=== PATIENT | male | born 1945 | race Caucasian/White ===

== ENCOUNTER 2020-06-08 10:09 | Inpatient (IN) | payer MEDICARE ==
[2020-06-08 11:10] LABS: Basophils # (A) 0.1 k/uL (0-0.2); Basophils % (A) 0 %; Eosinophils # (A) 0.1 k/uL (0-0.7); Eosinophils % (A) 1 %; HCT 47.6 % (39.0-53.0); HGB 16.3 gm/dL (13.0-17.5); Lymphocytes % (A) 6 %; MCHC 34.3 g/dL (31.0-37.0); MCV 90.1 fL (80.0-100.0); Mean Platelet Volume 8.8; Monocytes # (A) 1.1 k/uL (0-1.0); Monocytes % (A) 6 %; Neutrophils # (A) 15.9 k/uL (1.3-7.7); Neutrophils % (A) 87 %; Platelet Count 337 k/uL (150-450); RBC 5.28 m/uL (4.30-5.90); RDW 13.6 % (11.5-15.5); WBC 18.3 k/uL (3.8-10.6)
[2020-06-08 11:21] LABS: Albumin 4.4 g/dL (3.5-5.0); Calcium 10.3 mg/dL (8.4-10.2); Total Bilirubin 1.4 mg/dL (0.2-1.3); Total Protein 7.2 g/dL (6.3-8.2)
[2020-06-08 11:23] LABS: Magnesium 2.2 mg/dL (1.6-2.3); Partial Thromboplastin Time 23.6 sec (22.0-30.0); Prothrombin Time 10.4 sec (9.0-12.0)
[2020-06-08 11:25] LABS: Appearance,Urine Clear (Clear); Bilirubin,Urine Negative (Negative); Blood,Urine Negative (Negative); Color,Urine Yellow; Glucose,Urine (UA) Negative (Negative); Hyaline Casts,Urine 52 /lpf (0-2); Ketones,Urine Negative (Negative); Leukocyte Esterase,Urine Negative (Negative); Mucus,Urine Moderate /hpf; Nitrite,Urine Negative (Negative); PH, Urine 5.5 (5.0-8.0); Protein,Urine 1+ (Negative); RBC,Urine 1 /hpf (0-5); Specific Gravity,Urine 1.032 (1.001-1.035); Squamous Epithelial Cell,Urine <1 /hpf (0-4); Urobilinogen,Urine <2.0 mg/dL (<2.0); WBC,Urine 2 /hpf (0-5)
--- NOTE | 2020-06-08 11:29 | XR ---
EXAMINATION TYPE: XR chest 2V DATE OF EXAM: 06/08/2020 COMPARISON: NONE HISTORY: Chest pain and discomfort. TECHNIQUE: Frontal and lateral views of the chest are obtained. FINDINGS: Overlying EKG leads. There is reticular interstitial changes bilaterally slightly more prom inent in the left basilar region. No significant pleural effusion or pneumothorax noted. The cardiac silhouette size is upper limits of normal. The osseous structures are intact. IMPRESSION: Reticular interstitial changes bilaterally favor fibrosis. Correlation with old outside x-ray would be beneficial. Areas of acute edema and/or infiltrate difficult to exclude without prior comparison.
[2020-06-08] MEDS ORDERED: ASPIRIN 81 MG PO STA (11:57)
--- NOTE | 2020-06-08 11:58 | ED ---
Chest Pain HPI - General Chief Complaint: Chest Pain Stated Complaint: Chest pain, abd pain, JULIAN Time Seen by Provider: 06/08/20 10:22 Source: patient, family Mode of arrival: ambulatory Limitations: no limitations - History of Present Illness Initial Comments: 74-year-old male presents today for chief complaint of chest pain. Pt states for the past few weeks with ambulation and agter eating he has had chest discomfort in the upper abdomen that radiates up into the chest and sometimes into the arms. Patient states that last night he thought "i was going to " from the chest pressure and pain in his chest. Patient states he had associated SOB. Patient states that the symptoms improved at rest. But when he walks or eating he has chest pressure/pain. Patient denies vomiting, lower abdominal pain, back pain. Patient denies additional complaints. - Related Data Home Medications Medication Instructions Recorded Confirmed Omeprazole Magnesium [PriLOSEC OTC] 20 mg PO DAILY PRN 06/08/20 06/08/20 Allergies Allergy/AdvReac Type Severity Reaction Status Date / Time No Known Allergies Allergy Verified 06/08/20 11:30 Review of Systems ROS Statement: Those systems with pertinent positive or pertinent negative responses have been documented in the HPI. ROS Other: All systems not noted in ROS Statement are negative. Past Medical History Past Medical History: Hypertension History of Any Multi-Drug Resistant Organisms: None Reported Past Surgical History: Orthopedic Surgery Additional Past Surgical History / Comment(s): left shoulder Past Psychological History: No Psychological Hx Reported Smoking Status: Never smoker Past Alcohol Use History: None Reported Past Drug Use History: None Reported General Exam Limitations: no limitations Course Vital Signs 06/08/20 10:11 Temperature 97.8 F Pulse Rate 136 H Respiratory 18 Rate Blood Pressure 118/84 O2 Sat by Pulse 97 Oximetry Disposition Referrals: None,Stated [Primary Care Provider] - 1-2 days
[2020-06-08] MEDS ORDERED: HEPARIN SODIUM,PORCINE 5,000 UNIT/ML 1 ML VIAL IV PRN (11:59)
[2020-06-08] MEDS ORDERED: HEPARIN SODIUM,PORCINE 5,000 UNIT/ML 1 ML VIAL IV ONE (11:59)
[2020-06-08 12:03] LABS: D-Dimer 2.16 mg/L FEU (<0.60)
[2020-06-08] MEDS: HEPARIN SOD,PORK IN 0.45% NACL 25,000 UNIT in 0.45% NACL 1 250ML.BAG IV SCH (12:17)
[2020-06-08] MEDS ORDERED: FUROSEMIDE 10 MG/ML 4 ML VIAL IV STA (12:17)
--- NOTE | 2020-06-08 12:19 | ED ---
Chest Pain HPI - General Source: patient, family Mode of arrival: ambulatory Limitations: no limitations <Edith Bolanos - Last Filed: 06/08/20 12:58> <Penny Bryan - Last Filed: 06/11/20 00:52> - General Chief Complaint: Chest Pain Stated Complaint: Chest pain, abd pain, JULIAN Time Seen by Provider: 06/08/20 10:22 - History of Present Illness Initial Comments: 74yo male with previous history of hypertension who currently does not take any of his medications presents emergency department today for months of chest pain that increased last night. Patient states he has had upper abdominal pain that radiates into his chest and at times into his arm for the past 2 months he states is her pressure at times sharp. Patient states that last night he had an upset after dinner and thought that he was going to . Patient states he did not want presents to the ER at that time. Patient states he associated diz ziness and shortness of breath. Patient states "I think it had a heart attack" and "i thought i was going to ". Patient states he currently is pain-free unless he ambulates or eats something. Patient states he still has slight shortness of breath. He denies arm or jaw pain at this time. Patient denies any nausea vomiting. Patient denies leg swelling, known coronary disease, aneurysm history of DVT or pulmonary embolism, denies anticoagulation therapy. Patient denies additional complaints. He appears nontoxic on arrival. Patient states that he hasnt seen a doctor in "50 years" (Edith Bolanos) - Related Data Home Medications Medication Instructions Recorded Confirmed Omeprazole Magnesium [PriLOSEC OTC] 20 mg PO DAILY PRN 06/08/20 06/08/20 Allergies Allergy/AdvReac Type Severity Reaction Status Date / Time No Known Allergies Allergy Verified 06/08/20 11:30 Review of Systems ROS Other: All systems not noted in ROS Statement are negative. <Edith Bolanos - Last Filed: 06/08/20 12:58> ROS Other: All systems not noted in ROS Statement are negative. <Penny Bryan - Last Filed: 06/11/20 00:52> ROS Statement: Those systems with pertinent positive or pertinent negative responses have been documented in the HPI. Past Medical History Past Medical History: Hypertension History of Any Multi-Drug Resistant Organisms: None Reported Past Surgical History: Orthopedic Surgery Additional Past Surgical History / Comment(s): left shoulder Past Psychological History: No Psychological Hx Reported Smoking Status: Never smoker Past Alcohol Use History: None Reported Past Drug Use History: None Reported <Edith Bolanos - Last Filed: 06/08/20 12:58> General Exam Limitations: no limitations <Luis MiguelEdith Jorgensen - Last Filed: 06/08/20 12:58> - General Exam Comments Initial Comments: General: The patient is awake and alert, in no distress Eye: +3 mm pupils are equal, round and reactive to light, extra-ocular movements are intact. No nystagmus. There is normal conjunctiva bilaterally. No signs of icterus. Ears, nose, mouth and throat: There are moist mucous membranes and no oral lesions. Neck: The neck is supple, there is no tenderness or JVD. Cardiovascular: There is an increased rate and regular rhythm. No murmur, rub or gallop is appreciated. Respiratory: Lungs are clear to auscultation, respirations are non-labored, breath sounds are equal. No wheezes, stridor, rales, or rhonchi. Gastrointestinal: [Soft, non-distended, some epigastric tenderness to palpation of the abdomen without masses or organomegaly noted. There is no rebound or guarding present. Musculoskeletal: Normal ROM, no tenderness. Strength 5/5. Sensation intact. Radial and DP pulses equal bilaterally 2+. Neurological: A&O x 3. CN II-XII intact grossly, There are no obvious motor or sensory deficits. Coordination appears grossly intact. Speech is normal. Skin: Skin is warm and dry and no rashes or lesions are noted. No LE edema or calf tenderness. Psychiatric: Cooperative, appropriate mood & affect, normal judgment. (Edith Bolanos) Course <Penny Bryan Nidia - Last Filed: 06/11/20 00:52> Vital Signs 06/08/20 06/08/20 06/08/20 10:11 13:05 13:42 Temperature 97.8 F 97.6 F Pulse Rate 136 H 126 H Pulse Rate [ 125 H Pulse Oximetery ] Respiratory 18 18 18 Rate Blood Pressure 118/84 108/81 Blood Pressure 107/78 [Right Arm Sitting] O2 Sat by Pulse 97 95 96 Oximetry 06/08/20 06/08/20 06/08/20 14:54 19:12 20:41 Temperature Pulse Rate 122 H 124 H 123 H Pulse Rate [ Pulse Oximetery ] Respiratory 18 18 16 Rate Blood Pressure 110/85 103/72 107/79 Blood Pressure [Right Arm Sitting] O2 Sat by Pulse 96 94 L Oximetry 06/08/20 06/09/20 23:30 00:00 Temperature 97.6 F Pulse Rate 122 H Pulse Rate [ 125 H Pulse Oximetery ] Respiratory 16 19 Rate Blood Pressure 94/67 Blood Pressure 107/78 [Right Arm Sitting] O2 Sat by Pulse 98 95 Oximetry - Reevaluation(s) Reevaluation #1: 06/08/20 12:[address] Crow. Requesting 40 mg IV and STAT echo. Will be down to see patient in 15 minutes (Penny Bryan) Reevaluation #2: 06/08/20 12:53 Dr. Crow reports 10% estimated EF. Would like patient on Lasix gtt. Will admit to tele. Patient will need cath once mored medically stable. (Penny Bryan) Chest Pain MDM <Edith Bolanos - Last Filed: 06/08/20 12:58> <Penny Bryan - Last Filed: 06/11/20 00:52> - [facility] Troponin 18. likely she'll infarct in yesterday evening when symptoms were maximal. EKG there is some slight depression in the lateral leads. Otherwise no ST elevation. Pt has left axis. BNP 93387. CXR some concern for pulmonary edema. Pt has no extremity findings. Contract Serviceman Maged Crow assessed echocardiogram bedside. EF ~10%. Contract Serviceman will initiate a lasix drip and admit patient for further monitoring/evaluation. Dr Bryan agreeable to care plan 30 minutes critical care time spent with patient performing history, physical, consulting/and reevaluating with strategic consultant, reviewing labs, re-evaluating patient. (Edith Bolanos) I was available for consultation in the emergency department. The history and physical exam were done by the midlevel provider. I was consulted for this patients care. I reviewed the case with the midlevel provider and based on their presentation of the patient, I agree with the assessment, medical decision making and plan of care as documented. Chart was dictated using Mambu dictation software. Attempts were made to correct any dictation errors however some typographical errors may persist. Patient was seen during a national state of emergency due to the Covid-19 pandemic. Evaluated patient myself. Spoke with Dr. Crow who came to the ED. Stat echo performed. Dr. Crow requesting lasix gtt and tele admission. (Penny Bryan) Disposition Is patient prescribed a controlled substance at d/c from ED?: No Time of Disposition: 13:01 Decision to Admit Reason: Admit from EC Decision Date: 06/08/20 Decision Time: 13:01 <Edith Bolanos - Last Filed: 06/08/20 12:58> <Penny Bryan - Last Filed: 06/11/20 00:52> Clinical Impression: NSTEMI (non-ST elevated myocardial infarction), Elevated brain natriuretic peptide (BNP) level, Pulmonary edema, Chest discomfort, Dyspnea Disposition: ADMITTED IP TO THIS HOSP Condition: Serious
--- NOTE | 2020-06-08 12:32 | CT ---
CT CHEST FOR PULMONARY EMBOLISM. EXAMINATION TYPE: CT chest angio for PE DATE OF EXAM: 06/08/2020 INDICATION: Epigastric pain. CT DLP: 369.1 mGycm, Automated exposure control for dose reduction was used. CONTRAST: Patient injected with 80 mL of Isovue 370. COMPARISON: TECHNIQUE: CT of the chest is performed on a spiral scan at 2 mm thick sections. Study is performed with intravenous contrast timed for evaluation for pulmonary embolism. This will limit additional po rtions of the evaluation. 3-D MIP images reconstructed by the technologist are reviewed on the compu ter in the coronal and sagittal planes. FINDINGS: No persistent filling defects are evident to suggest an acute pulmonary embolism. No mediastinal or hilar adenopathy enlarged by CT criteria is evident. The ascending aorta diameter at the level of the main pulmonary artery is 3.3 cm. The main pulmonary artery diameter at the bifur cation is 3.0 cm. Some mild groundglass opacities are within the upper lung guillen and adjacent to the moderate-sized p leural effusions present bilaterally. Findings are nonspecific. Consider atypical pneumonia within th e differential. Portion of the thyroid visualized is normal. Limited CT section through the upper abdomen are unremarkable. IMPRESSIONS: 1. No acute pulmonary embolism. 2. Moderate bilateral pleural effusions. 3. Mild subsegmental infiltrates and groundglass opacities in the mid and upper lung guillen. Consider atypical pneumonia within the differential
--- NOTE | 2020-06-08 12:34 | CT ---
EXAMINATION TYPE: CT abdomen pelvis w con DATE OF EXAM: 06/08/2020 COMPARISON: None HISTORY: Epigastric pain. CT DLP: 836.8 mGycm Automated exposure control for dose reduction was used. CONTRAST: CT scan of the abdomen pelvis is performed with IV Contrast, patient injected with mL of Isovue 370. FINDINGS- exam markedly limited due to significant motion artifact. LUNG BASES-there is bilateral consolidation and sizable pleural effusions with cardiomegaly. Ingestio n diffuse interstitial pattern. Correlate for interstitial pneumonitis or venous congestion. LIVER/GB-multiple hypodensities within the liver. Largest measures 1 cm and 10 Hounsfield units kalyn tible with simple cysts.. PANCREAS- No gross abnormality is seen. SPLEEN- No gross abnormality is seen. ADRENALS- No gross abnormality is seen. KIDNEYS/BLADDER- no hydronephrosis. Hypodensities within both kidneys are most likely related to simp le cysts.. BOWEL-bowel gas pattern nonspecific with changes of diverticulosis. Wall thickening in the sigmoid re gion noted with mild pericolonic inflammatory change could be related to mild diverticulitis, colitis . Mucosal lesion or neoplasm not excluded. Correlate clinically.. LYMPH NODES- No greater than 1cm abdominal or pelvic lymph nodes areappreciated. OSSEOUS STRUCTURES-hypertrophic and degenerative changes noted.. OTHER- note no free fluid. IMPRESSION- 1. There is wall thickening and diverticular changes involving the distal sigmoid with inflammatory changes suggestive of acute diverticulitis. Less likely consideration would be colitis. Mucosal lesio n is not excluded. 2. Bilateral sizable pleural effusions with basilar consolidation correlate for interstitial pneumoni tis or venous congestion.
[2020-06-08] MEDS ORDERED: NITROGLYCERIN SL TABS 0.4 MG TAB SUBLINGUAL PRN (12:57)
[2020-06-08] MEDS: FUROSEMIDE 100 MG in SODIUM CHLORIDE 0.9% 90 ML IV SCH ×2 (13:44→23:28)
[2020-06-08] MEDS ORDERED: PANTOPRAZOLE 40 MG TABLET PO PRN (13:45)
--- NOTE | 2020-06-08 14:13 | CONS ---
CONSULTATION This is a 74-year-old gentleman who has not seen a physician in the last 15 years. Came into the emergency room with increasing shortness of breath that has been going on for several months, but in the last one week, his shortness of breath got really bad and whenever he was eating something he would have abdominal epigastric discomfort as well as chest pressure and shortness of breath. After arrival, he was found to be in a sinus tachycardia at a rate of nearly 125 beats per minute with nonspecific ST changes. Emergency room physician Dr. Amador called me and I advised to have a CT angio as well as an echocardiogram. CT angio did not reveal any significant evidence of pulmonary embolism and any aortic pathology. Chest x-ray does not show much congestion. Heart size seems to be normal. Patient is resting comfortably. His BNP is elevated, troponin is up to 18. Overall clinical picture suggested that of chronic congestive heart failure. At the time of my evaluation, he is resting comfortably and his significant other is with him. I explained to both of them after reviewing the echocardiogram that his ejection fraction of less than 20% and we are dealing with a heart failure and there is also a question of apical thrombus. I explained to them the prognosis is poor. We will initiate him on IV heparin and place him on a Lasix drip with a small dose of losartan and after we unload him, we will initiate him on a beta- juliet tomorrow with Coreg 3.125 mg b.i.d. Ejection fraction is in the 10%-15% range. Prognosis remains very poor. PAST MEDICAL HISTORY: The patient has history of hypertension, has not been seeing a physician for more than 15 years. He has had some left shoulder surgery, details unavailable. MEDICATIONS: None. He sometimes takes omeprazole over the counter. ALLERGIES: None. PHYSICAL EXAMINATION: On examination, blood pressure is 122/70, pulse rate is 130 per minute, regular. HEENT: Unremarkable. Fundus was not examined by me. NECK: Supple, there is JVD of 1 cm. No carotid bruit. HEART: Exam reveals S1, S2 with tachycardia short systolic murmur. LUNGS: Reveal diminished air entry, both lung guillen. Fine rales over both bases. ABDOMEN: Soft, lower extremities reveal diminished pulses. CENTRAL NERVOUS SYSTEM: Grossly no focal deficits but there is generalized weakness. EKG revealed sinus tachycardia, nonspecific ST and T-wave changes. Chest x-ray reveals no evidence of clear-cut congestion, cannot exclude some pulmonary fibrosis-type picture. Normal cardiac silhouette. LABORATORY DATA: Suggests the troponin is 18 and BNP is almost 18,000. IMPRESSION: 1. Chronic congestive heart failure. 2. Cardiomyopathy with ejection fraction of less than 20%. 3. Patient is COVID negative based on a PCR test. 4. Patient probably has non ST elevation [place] as well with a troponin elevation. 5. Apical thrombus on echocardiogram. RECOMMENDATIONS: I am recommending IV heparin cautious diuresis, initiate him on a losartan and a small dose of beta juliet to be initiated tomorrow. Prognosis remains poor. Discussed with the patient and his significant other at length. It is unclear what may be the precipitating factor for this symptoms whether this is a myocarditis/cardiomyopathy type picture or chronic heart failure is unclear, but patient does have history of hypertension in the past. Prognosis remains poor. Discussed my thoughts in detail with the patient and family. MMBLANCHE / MAGON: [id number] /
--- NOTE | 2020-06-08 15:33 | ECHOF ---
Referral Reason:herat failure MEASUREMENTS -------- HEIGHT: 152.4 cm WEIGHT: 74.8 kg BP: IVSd: 0.8 cm (0.6 - 1.1) LVIDd: 5.2 cm (3.9 - 5.3) LVPWd: 1.3 cm (0.6 - 1.1) IVSs: 1.5 cm LVIDs: 4.9 cm LVPWs: 1.3 cm LA Diam: 4.3 cm (2.7 - 3.8) LAESV Index (A-L): 31.22 ml/m Ao Diam: 3.3 cm (2.0 - 3.7) RAP: 5.00 mmHg RVSP: 24.35 mmHg FINDINGS -------- Sinus rhythm. The left ventricle is moderately dilated. There is severe global hypokinesis of LV . Overall left ventricular systolic function is severely impaired with, an EF < 20%. The right ventricle is normal in size. LA is moderately dilated 34-39 ml/m2 The right atrial size is normal. Lumason used to r/o thrombus in apex. The aortic valve is trileaflet, and appears structurally normal. No aortic stenosis or regurgitation. Moderate mitral regurgitation is present. Mild tricuspid regurgitation present. Right ventricular systolic pressure is normal at < 35 mmHg. Trace/mild (physiologic) pulmonic regurgitation. The aortic root size is normal. There is no pericardial effusion. CONCLUSIONS -------- 1. The left ventricle is moderately dilated. 2. There is severe global hypokinesis of LV . 3. Overall left ventricular systolic function is severely impaired with, an EF < 20%. 4. The right ventricle is normal in size. 5. LA is moderately dilated 34-39 ml/m2 6. The right atrial size is normal. 7. Lumason used to r/o thrombus in apex. 8. Moderate mitral regurgitation is present. 9. Mild tricuspid regurgitation present. 10. Trace/mild (physiologic) pulmonic regurgitation. 11. The aortic root size is normal. 12. There is no pericardial effusion. PIPING SUPERVISOR: Verna Bailey RDCS
[2020-06-08 18:06] LABS: Calcium 9.6 mg/dL (8.4-10.2)
[2020-06-08 18:14] LABS: Potassium 4.1 mmol/L (3.5-5.1)
--- NOTE | 2020-06-08 18:23 | P.HPIM ---
History of Present Illness H&P Date: 06/08/20 Chief Complaint: Chest pain and shortness of breath The patient 74-year-old male who has a history of hypertension apparently was seen by PCP in the past and advised to take medications to his blood pressure however he did not follow-up and was not compliant. He states he has not seen a physician in about 40-50 years. He does not smoke or drink. He states over the last few months he has had abdominal pain after eating heavy meals with radiation into his chest and his left arm. He did not attributed to his heart and study attributed to his possible gallbladder. He notes over the last few months he's had increasing shortness of breath and today his shortness of breath was worse he had some nausea present emergency room responded to be in acute congestive heart failure. He had an elevated troponin of 18, elevated BNP. He was seen by cardiology echocardiogram showed EF of 10%. The patient was started on Lasix and hospitalized for further workup and management. The patient denied any weight gain any PND or orthopnea. Review of Systems Complete review of systems negative other than stated above Past Medical History Past Medical History: Hypertension History of Any Multi-Drug Resistant Organisms: None Reported Past Surgical History: Orthopedic Surgery Additional Past Surgical History / Comment(s): left shoulder Past Psychological History: No Psychological Hx Reported Smoking Status: Never smoker Past Alcohol Use History: None Reported Past Drug Use History: None Reported Medications and Allergies Home Medications Medication Instructions Recorded Confirmed Type Omeprazole Magnesium [PriLOSEC OTC] 20 mg PO DAILY PRN 06/08/20 06/08/20 History Allergies Allergy/AdvReac Type Severity Reaction Status Date / Time No Known Allergies Allergy Verified 06/08/20 11:30 Physical Exam Vitals: Vital Signs Temp Pulse Resp BP Pulse Ox 06/08/20 14:54 122 H 18 110/85 96 06/08/20 13:42 126 H 18 108/81 96 06/08/20 10:11 97.8 F 136 H 18 118/84 97 Intake and Output 06/08/20 06/08/20 06/08/20 06:59 14:59 22:59 Other: Weight 74.843 kg - Constitutional General appearance: no acute distress - EENT Eyes: PERRLA - Respiratory Respiratory: bilateral: diminished - Cardiovascular Rhythm: regular ankle Peripheral Edema: bilateral: 1+ - Gastrointestinal General gastrointestinal: normal bowel sounds - Integumentary Integumentary: normal - Neurologic Neurologic: CNII-XII intact - Musculoskeletal Musculoskeletal: strength equal bilaterally - Psychiatric Psychiatric: A&O x's 3, appropriate affect, intact judgment & insight Results CBC & Chem 7: 06/08/20 10:50 06/08/20 17:33 Labs: Abnormal Lab Results - Last 24 Hours (Table) 06/08/20 06/08/20 06/08/20 Range/Units 10:50 10:50 10:50 WBC 18.3 H (3.8-10.6) k/uL Neutrophils # 15.9 H (1.3-7.7) k/uL Monocytes # 1.1 H (0-1.0) k/uL APTT (22.0-30.0) sec D-Dimer 2.16 H (<0.60) mg/L FEU BUN 33 H (9-20) mg/dL Creatinine 1.26 H (0.66-1.25) mg/dL Glucose 192 H (74-99) mg/dL Calcium 10.3 H (8.4-10.2) mg/dL Total Bilirubin 1.4 H (0.2-1.3) mg/dL AST 353 H (17-59) U/L ALT 50 H (4-49) U/L Troponin I (0.000-0.034) ng/mL Urine Protein (Negative) Hyaline Casts (0-2) /lpf Urine Mucus (None) /hpf 06/08/20 06/08/20 06/08/20 Range/Units 10:50 11:08 14:38 WBC (3.8-10.6) k/uL Neutrophils # (1.3-7.7) k/uL Monocytes # (0-1.0) k/uL APTT (22.0-30.0) sec D-Dimer (<0.60) mg/L FEU BUN (9-20) mg/dL Creatinine (0.66-1.25) mg/dL Glucose (74-99) mg/dL Calcium (8.4-10.2) mg/dL Total Bilirubin (0.2-1.3) mg/dL AST (17-59) U/L ALT (4-49) U/L Troponin I 18.200 H* 24.200 H* (0.000-0.034) ng/mL Urine Protein 1+ H (Negative) Hyaline Casts 52 H (0-2) /lpf Urine Mucus Moderate H (None) /hpf 06/08/20 06/08/20 Range/Units 17:33 17:33 WBC (3.8-10.6) k/uL Neutrophils # (1.3-7.7) k/uL Monocytes # (0-1.0) k/uL APTT 46.8 H (22.0-30.0) sec D-Dimer (<0.60) mg/L FEU BUN 31 H (9-20) mg/dL Creatinine (0.66-1.25) mg/dL Glucose 153 H (74-99) mg/dL Calcium (8.4-10.2) mg/dL Total Bilirubin (0.2-1.3) mg/dL AST (17-59) U/L ALT (4-49) U/L Troponin I (0.000-0.034) ng/mL Urine Protein (Negative) Hyaline Casts (0-2) /lpf Urine Mucus (None) /hpf Chest x-ray: report reviewed Assessment and Plan (1) NSTEMI (non-ST elevated myocardial infarction) Narrative/Plan: Continue per cardiology appreciated input Current Visit: Yes Status: Acute Code(s): I21.4 - NON-ST ELEVATION (NSTEMI) MYOCARDIAL INFARCTION SNOMED Code(s): 12726389 (2) Thrombus in heart chamber Narrative/Plan: IV heparin per cardiology Current Visit: Yes Status: Acute Code(s): I51.3 - INTRACARDIAC THROMBOSIS, NOT ELSEWHERE CLASSIFIED SNOMED Code(s): 099042098 (3) Elevated brain natriuretic peptide (BNP) level Current Visit: Yes Status: Acute Code(s): R79.89 - OTHER SPECIFIED ABNORMAL FINDINGS OF BLOOD CHEMISTRY SNOMED Code(s): 638829159 (4) Pulmonary edema Narrative/Plan: Cautious diuresis, strict I's and O's Current Visit: Yes Status: Acute Code(s): J81.1 - CHRONIC PULMONARY EDEMA SNOMED Code(s): 59082581 (5) Chest discomfort Narrative/Plan: Secondary to non-ST elevation MT Current Visit: Yes Status: Acute Code(s): R07.89 - OTHER CHEST PAIN SNOMED Code(s): 606720534
[2020-06-08] MEDS: POTASSIUM CHLORIDE ER 20 MEQ TAB.ER PO SCH (19:14)
[2020-06-09 05:37] LABS: Basophils # (A) 0.1 k/uL (0-0.2); Basophils % (A) 1 %; Eosinophils # (A) 0.1 k/uL (0-0.7); Eosinophils % (A) 1 %; Lymphocytes # (A) 1.1 k/uL (1.0-4.8); Lymphocytes % (A) 9 %; MCH 30.1 pg (25.0-35.0); MCHC 33.5 g/dL (31.0-37.0); MCV 89.8 fL (80.0-100.0); Mean Platelet Volume 8.4; Monocytes % (A) 8 %; Neutrophils # (A) 10.7 k/uL (1.3-7.7); Neutrophils % (A) 82 %; Platelet Count 300 k/uL (150-450); RBC 5.34 m/uL (4.30-5.90); RDW 13.5 % (11.5-15.5); WBC 13.1 k/uL (3.8-10.6)
[2020-06-09 05:50] LABS: Cholesterol 203 mg/dL (<200); HDL Cholesterol 58 mg/dL (40-60); LDL Cholesterol,Calculated 121 mg/dL (0-99); Triglycerides 122 mg/dL (<150)
[2020-06-09] MEDS: FUROSEMIDE 100 MG in SODIUM CHLORIDE 0.9% 90 ML IV SCH (06:04)
[2020-06-09] MEDS ORDERED: ASPIRIN 325 MG TAB PO SCH (09:00)
[2020-06-09 09:24] LABS: Glucose,Whole Blood 125 mg/dL (75-99)
[2020-06-09] MEDS: carvediloL 3.125 MG TAB PO SCH ×2 (09:31→20:39)
[2020-06-09] MEDS ORDERED: ATORVASTATIN 80 MG TAB PO STA (11:08)
[2020-06-09] MEDS ORDERED: SODIUM CHLORIDE 0.9% 1,000 ML in EMPTY BAG 1 BAG IV ONE (11:08)
[2020-06-09] MEDS ORDERED: ALPRAZolam 0.5 MG TAB PO PRN (11:08)
[2020-06-09] MEDS ORDERED: ALPRAZolam 0.25 MG TAB PO PRN (11:08)
[2020-06-09 11:27] LABS: Calcium 9.1 mg/dL (8.4-10.2)
[2020-06-09] MEDS: POTASSIUM CHLORIDE ER 20 MEQ TAB.ER PO SCH (12:14)
--- NOTE | 2020-06-09 12:49 | CDI ---
Documentation Clarification Form Date: 06/09/2020 12:30:18 PM From: Lucia Ortiz RN CCDS Admit Date: 06/08/2020 12:44:00 PM Patient Name: Matheus Piña Visit Number: [id number] Discharge Date: ATTENTION: The Clinical Documentation Specialists (CDI) and [facility] Coding Staff appreciate your assistance in clarifying documentation. Please respond to the clarification below the line at the bottom and electronically sign. The CDI & [facility] Coding staff will review the response and follow-up if needed. Please note: Queries are made part of the Legal Health Record. If you have any questions, please contact the author of this message via ITS. Dr. Sindy Crow, Congestive Heart Failure is documented in Cardiology Consult 06/08 History/Risk Factors: 74-year-old male presents to the ED for months of chest pain increased last night with abdominal pain that radiates to his arm at times and shortness of breath. Medical History: HTN Clinical Indicators: VS/Pulse OX 06/08: B/P 118/84; HR 136; Temp 97.8 Oral F; RR 18; SpO2 97% ra BNP 06/08: [id number] Echocardiogram Results 06/08: Severe global hypokinesis of LV. Overall left ventricular systolic function is severely impaired with, an EF <20%. LA is moderately dilated 34-39 ml/m2; Moderate mitral regurgitation is present; Mild tricuspid regurgitation; Trace/mild (physiologic) pulmonic regurgitation. CTA 06/08: Moderate bilateral pleural effusions; Mild subsegmental infiltrates and groundglass opacities in the mid and upper lung guillen Treatment: 06/08 Lasix Iv x1; 06/08 Lasix Ivpb d/c 06/09; 06/09 Lasix Iv Q8HR; 06/09 Coreg PO BID In your professional opinion, can you please clarify the type of CHF if known? Chronic Systolic Heart Failure Unable to Determine Other, please specify Answered in Pulmonology Consult 06/09 Acute on Chornic Systolic Heart Failure (Last Revision: September 2017) MTDD
[2020-06-09] MEDS ORDERED: METOPROLOL TARTRATE 25 MG TAB PO STA (12:59)
[2020-06-09] MEDS ORDERED: HEPARIN SODIUM 1,000 UN/ML (10ML VL) ONE (13:28)
[2020-06-09] MEDS ORDERED: VERAPAMIL 2.5 MG/ML 2 ML AMP ONE (13:28)
[2020-06-09] MEDS ORDERED: LIDOCAINE 1% INJ 10MG/ML (20 ML MDV) ONE (13:28)
[2020-06-09] MEDS ORDERED: IV FLUID CONTINUATION 950 ML IV ONE (13:30)
[2020-06-09] MEDS ORDERED: MIDAZOLAM 2 MG/2 ML VIAL IVP ONE (13:37)
[2020-06-09] MEDS ORDERED: LIDOCAINE 1% INJ 10MG/ML (20 ML MDV) SQ ONE (13:41)
[2020-06-09] MEDS ORDERED: VERAPAMIL SYRINGE (5 MG/10 ML) INTRAARTER ONE (13:48)
[2020-06-09] MEDS ORDERED: NOREPINEPHRINE 4 MG in SODIUM CHLORIDE 0.9% 250 ML IV ONE (14:00)
[2020-06-09] MEDS ORDERED: IOPAMIDOL-370 100ML BTL INJ ONE (14:21)
[2020-06-09] MEDS ORDERED: HEPARIN SOD,PORK IN 0.45% NACL 25,000 UNIT in 0.45% NACL 1 250ML.BAG IV ONE (14:30)
[2020-06-09] MEDS ORDERED: RX INFO: IV CONTRAST WAS GIVEN 1 EACH MISC MISCELLANE PRN (14:33)
--- NOTE | 2020-06-09 15:07 | P.PN ---
Subjective Progress Note Date: 06/09/20 Objective - Vital Signs Vital signs: Vital Signs Temp 97.8 F 06/09/20 09:00 Pulse 108 H 06/09/20 14:45 Resp 16 06/09/20 12:13 BP 94/69 06/09/20 14:45 Pulse Ox 94 L 06/09/20 14:45 Intake & Output 06/08/20 06/09/20 06/09/20 18:59 06:59 18:59 Intake Total 323.494 382.394 Output Total 200 525 Balance 123.494 -142.606 Weight 74.843 kg 76.2 kg Intake: IV 308 Intake, IV Titration 323.494 74.394 Amount Furosemide 100 mg In 163.333 Sodium Chloride 0.9% 90 ml @ 10 MG/HR 10 mls/hr IV .Q10H [facility] Rx#: [id number] Heparin Sod,Pork in 0.45% 160.161 74.394 NaCl 25,000 unit In 0.45 % NaCl 1 250ml.bag @ 12 UNITS/KG/HR 8.981 mls/hr IV .Q24H [facility] Rx#: [id number] Output: Urine 200 525 Other: Voiding Method Toilet Urinal - Constitutional General appearance: Present: no acute distress - Respiratory Respiratory: bilateral: diminished - Cardiovascular Rhythm: regular Abnormal Heart Sounds: Present: systolic murmur - Integumentary Integumentary: Present: normal - Psychiatric Psychiatric: Present: appropriate affect - Labs CBC & Chem 7: 06/09/20 05:19 06/09/20 05:19 Labs: Abnormal Lab Results - Last 24 Hours (Table) 06/08/20 06/08/20 06/08/20 Range/Units 14:38 17:33 17:33 WBC (3.8-10.6) k/uL Neutrophils # (1.3-7.7) k/uL APTT 46.8 H (22.0-30.0) sec Carbon Dioxide (22-30) mmol/L BUN 31 H (9-20) mg/dL Creatinine (0.66-1.25) mg/dL Glucose 153 H (74-99) mg/dL POC Glucose (mg/dL) (75-99) mg/dL Troponin I 24.200 H* (0.000-0.034) ng/mL Cholesterol (<200) mg/dL LDL Cholesterol, Calc (0-99) mg/dL 06/08/20 06/09/20 06/09/20 Range/Units 17:33 05:19 05:19 WBC 13.1 H (3.8-10.6) k/uL Neutrophils # 10.7 H (1.3-7.7) k/uL APTT (22.0-30.0) sec Carbon Dioxide 34 H (22-30) mmol/L BUN 30 H (9-20) mg/dL Creatinine 1.32 H (0.66-1.25) mg/dL Glucose 136 H (74-99) mg/dL POC Glucose (mg/dL) (75-99) mg/dL Troponin I 30.300 H* (0.000-0.034) ng/mL Cholesterol (<200) mg/dL LDL Cholesterol, Calc (0-99) mg/dL 06/09/20 06/09/20 06/09/20 Range/Units 05:19 05:19 09:04 WBC (3.8-10.6) k/uL Neutrophils # (1.3-7.7) k/uL APTT 36.9 H (22.0-30.0) sec Carbon Dioxide (22-30) mmol/L BUN (9-20) mg/dL Creatinine (0.66-1.25) mg/dL Glucose (74-99) mg/dL POC Glucose (mg/dL) 125 H (75-99) mg/dL Troponin I (0.000-0.034) ng/mL Cholesterol 203 H (<200) mg/dL LDL Cholesterol, Calc 121 H (0-99) mg/dL 06/09/20 06/09/20 Range/Units 11:31 11:31 WBC (3.8-10.6) k/uL Neutrophils # (1.3-7.7) k/uL APTT 37.3 H (22.0-30.0) sec Carbon Dioxide (22-30) mmol/L BUN (9-20) mg/dL Creatinine (0.66-1.25) mg/dL Glucose (74-99) mg/dL POC Glucose (mg/dL) (75-99) mg/dL Troponin I 27.300 H* (0.000-0.034) ng/mL Cholesterol (<200) mg/dL LDL Cholesterol, Calc (0-99) mg/dL Assessment and Plan (1) NSTEMI (non-ST elevated myocardial infarction) Narrative/Plan: Appreciate cardiology input, plan for cardiac catheterization, patient denies any chest pain Current Visit: Yes Status: Acute Code(s): I21.4 - NON-ST ELEVATION (NSTEMI) MYOCARDIAL INFARCTION SNOMED Code(s): 51147499 (2) Thrombus in heart chamber Narrative/Plan: Continue heparin drip, discussed with case management patient does not have prescription coverage so we'll need to evaluate if patient will need anticoagulation at discharge Current Visit: Yes Status: Acute Code(s): I51.3 - INTRACARDIAC THROMBOSIS, NOT ELSEWHERE CLASSIFIED SNOMED Code(s): 022476882 (3) Elevated brain natriuretic peptide (BNP) level Narrative/Plan: Acute on chronic CHF secondary to systolic heart failure: Continue diuresis, eyes and nose Current Visit: Yes Status: Acute Code(s): R79.89 - OTHER SPECIFIED ABNORMAL FINDINGS OF BLOOD CHEMISTRY SNOMED Code(s): 039321951 (4) Pulmonary edema Narrative/Plan: Secondary to CHF exacerbation Current Visit: Yes Status: Acute Code(s): J81.1 - CHRONIC PULMONARY EDEMA SNOMED Code(s): 00001113 (5) Chest discomfort Narrative/Plan: Chest pain-free Current Visit: Yes Status: Acute Code(s): R07.89 - OTHER CHEST PAIN SNOMED Code(s): 222362235 Plan: The patient acute on chronic CHF exacerbation secondary to this systolic heart failure. The patient was not following with a PCP at the time of admission and has not been seen for 40-50 years. Continue to optimize from a cardiac standpoint. He is a full code, overall poor prognosis. His significant other is his POA
--- NOTE | 2020-06-09 16:36 | CC ---
CARDIAC CATHETERIZATION REPORT DATE OF SERVICE: 06/09/2020 PROCEDURE: Left heart catheterization and coronary angiography. PERFORMED BY: Dr. Edinson Crow. Moderate conscious sedation time was 44 minutes. Patient was administered Versed. Oxygen saturation, hemodynamics and EKG were monitored closely. CLINICAL INFORMATION: Mr. Matheus Piña is a 74-year-old gentleman who has not seen a physician in 15 years, came in with a several-month history of increasing shortness of breath, culminating in a severe episode yesterday. His troponin was elevated. His clinical picture was rather for subacute LA and he was in heart failure. After treating his heart failure, his troponin started coming down and went up to 30 and came back down to 24 today. He was more comfortable, breathing easier. I recommend coronary angiography to rule out obstructive CAD. Echo revealed ejection fraction of 20%-25% with global hypokinesia. The risks, benefits, options, rationale were explained to the patient and also I spoke to his significant other who is the closest person available. He has no children and his brother is not available. PROCEDURE NOTE: Under local anesthesia and strict aseptic precautions, a 6-[place] introducer was placed in the right radial artery. Using a JL3.5 and JR4 catheters, I performed coronary angiography and the same right catheter was used to check LV pressure but LV gram was not performed. Following this, I noted that the patient had a significant left main and RCA as well as circumflex disease and the LAD was totally occluded. I went ahead and placed a 6-[place] introducer from the right femoral artery very carefully and sutured that. A TR band was then taken out and the patient will be sent to the ICU on a heparin drip and he will be watched very closely. I have talked to Dr. Mcleod regarding aortocoronary bypass surgery. However, patient has severe heart failure, elevated end-diastolic pressures and not the best of targets, especially of the left system. If surgery is turned down, I will perform Impella supported multivessel PCI tomorrow at 11:30. Until then. I will place him on a small dose of Levophed at 5 mcg. He will be in ICU and we will watch him very closely. Findings on the cardiac cath, the options available including the high risk of any interventional procedure was explained to the patient as well as his significant other, Mrs. Allen by phone. They understand all details and wished to proceed with the procedure. I will await further input from Dr. Martin. CARDIAC CATHETERIZATION FINDINGS: Left ventricular end-diastolic pressure was about 25 mmHg without any gradient across the aortic valve. CORONARY ANGIOGRAPHY FINDINGS: RIGHT CORONARY ARTERY: Large dominant vessel that has a stenosis of about 80% in the proximal/midportion long area of disease. After which the caliber improves and the vessel bifurcates into PDA and PLV, supplies a sizable amount of myocardium. PDA also has ostial lesion of about 40%. RCA is a very dominant vessel providing collaterals as well to the LAD system. LEFT MAIN CORONARY ARTERY: I did only 2 injections of the left system. The ostium of the left main appears to be good. The body of the left main has a 99% stenosis and then bifurcates into LAD and circumflex. LEFT ANTERIOR DESCENDING CORONARY ARTERY: There is an ostial lesion of about 80% or so and then LAD is totally occluded with limited antegrade flow. LEFT POSTERIOR CIRCUMFLEX CORONARY ARTERY: Nondominant vessel, starts off from the left main has some disease in the origin, but not well seen on the angiograms. Proximal circumflex has 80% stenosis, gives off an obtuse marginal and runs in the AV groove. Obtuse marginal is free of significant disease, but the disease extends from the distal left main into the circumflex and is a very highly diseased area. This is a nondominant vessel, yet important under the circumstances. LEFT VENTRICULOGRAM: LV-gram was not performed. FINAL IMPRESSION: This patient has a 99% body of left main disease, 80%-90% proximal/mid RCA dominant vessel disease, 80% proximal circumflex disease and total occlusion of LAD without much antegrade flow with collaterals coming from the right coronary artery. He has elevated filling pressures and no gradient. RECOMMENDATIONS: I am recommending aortocoronary bypass surgery. Operative surgeon feels is a very high risk. I will perform percutaneous intervention of all vessels including the left main circumflex and RCA and we will attempt LAD but I do not believe the LAD has much myocardium because of much myocardium because he already had a prior LA in the collaterals to the LAD. This procedure will be performed with Impella support tomorrow if the surgeon feels he is too high risk as an outpatient. Discussed my thoughts in detail with the patient and his girlfriend. The patient will be sent to the ICU on a heparin drip. I also spoke with the cyber security systems engineer ammonia box tender. JAGUAR / DUSTIN: [id number] /
[2020-06-09 17:24] LABS: Glucose,Whole Blood 148 mg/dL (75-99)
--- NOTE | 2020-06-09 18:04 | P.GSCN ---
History of Present Illness Consult date: 06/09/20 Reason for Consult: Coronary artery disease with significant left main disease Requesting physician: Sindy Crow History of present illness: This is a 74-year-old active gentleman who does not follow with a primary care physician and an outpatient basis, in fact he states he has not seen a doctor in 40-50 years. He denies any previous medical history and was on no medications at home other than occasional Prilosec. He presented to [facility] emergency room with complaints of upper abdominal pain with radiation to his chest and arms associated with shortness of breath. Upon questioning he states he has been having periods of pain with shortness of breath off and on for a couple of years which goes away with rest. He thought these episodes were stomach related, hence the reason he occasionally takes Prilosec. Prior to presentation to the emergency room he states he had another pain 10 which was so bad he thought he was going to . He denied any other associated symptoms. Chest x-ray demonstrated interstitial changes bilaterally. Chest CTA demonstrated no acute pulmonary embolism, moderate bilateral pleural effusions, with mid subsegmental infiltrates and groundglass opacities in the mid and upper lung guillen. Transthoracic echocardiogram was also completed demonstrating severe global hypokinesis of the left ventricle with EF less than 20%, moderate mitral regurgitation and mild tricuspid regurgitation. White blood cell count 18.3, d-dimer 2.16, creatinine 1.05, BNP 17,900, troponin 18.2 which did elevate to 30.3, and negative coronavirus. EKG showed sinus tach with occasional PVCs. The patient ruled in for non-STEMI and admitted for further evaluation and treatment with consultation placed to cardiology. Subsequently he was recommended to undergo heart catheterization which was completed today which demonstrated left main stenosis 99%, ostial LAD 80% followed by total occlusion, proximal circumflex stenosis 80%, proximal to mid RCA stenosis 80%. Due to these findings Dr. Martin from cardiothoracic surgery was consulted and contacted urgently by Dr. APARNA Crow for surgical revascularization recommendations. Review of Systems Review of systems was completed and was negative except as noted - Cardiovascular Reports as per HPI, Reports chest pain, Reports dyspnea on exertion, Reports shortness of breath - Respiratory Reports as per HPI - Gastrointestinal Reports as per HPI, Reports abdominal pain Past Medical History Past Medical History: Hyperlipidemia, Hypertension Additional Past Medical History / Comment(s): pt states no health history History of Any Multi-Drug Resistant Organisms: None Reported Past Surgical History: Orthopedic Surgery Additional Past Surgical History / Comment(s): left shoulder Past Anesthesia/Blood Transfusion Reactions: No Reported Reaction Past Psychological History: No Psychological Hx Reported Smoking Status: Never smoker Past Alcohol Use History: None Reported Past Drug Use History: None Reported Medications and Allergies Home Medications Medication Instructions Recorded Confirmed Type Omeprazole Magnesium [PriLOSEC OTC] 20 mg PO DAILY PRN 06/08/20 06/08/20 History Allergies Allergy/AdvReac Type Severity Reaction Status Date / Time No Known Allergies Allergy Verified 06/08/20 11:30 Surgical - Exam Vital Signs Temp Pulse Resp BP Pulse Ox 97.8 F 136 H 18 118/84 97 06/08/20 10:11 06/08/20 10:11 06/08/20 10:11 06/08/20 10:11 06/08/20 10:11 - General well developed, well nourished, no distress, no pain - Eyes normal ocular movement - ENT decreased hearing - Neck no masses, no bruits, trachea midline - Respiratory Lungs sounds diminished bilaterally. Respirations even, nonlabored. Currently on room air with oxygen saturation 95%. No chest wall deformities. No clubbing or cyanosis present. - Cardiovascular S1, S2 present. Tachycardic but regular rate and rhythm, sinus tach on telemetry. Palpable peripheral pulses bilaterally. No edema present. No calf pain or tenderness noted. Right femoral artery sheath present. - Abdomen Abdomen: soft, non tender, bowel sounds - Genitourinary Deferred - Rectum Deferred - Integumentary no rash, no growths - Neurologic normal coordination, normal sensation - Musculoskeletal normal posture - Psychiatric oriented to time, oriented to person, oriented to place Results - Labs 06/09/20 05:19 06/09/20 05:19 Abnormal Lab Results - Last 24 Hours (Table) 06/08/20 06/08/20 06/08/20 Range/Units 17:33 17:33 17:33 WBC (3.8-10.6) k/uL Neutrophils # (1.3-7.7) k/uL APTT 46.8 H (22.0-30.0) sec Carbon Dioxide (22-30) mmol/L BUN 31 H (9-20) mg/dL Creatinine (0.66-1.25) mg/dL Glucose 153 H (74-99) mg/dL POC Glucose (mg/dL) (75-99) mg/dL Troponin I 30.300 H* (0.000-0.034) ng/mL Cholesterol (<200) mg/dL LDL Cholesterol, Calc (0-99) mg/dL 06/09/20 06/09/20 06/09/20 Range/Units 05:19 05:19 05:19 WBC 13.1 H (3.8-10.6) k/uL Neutrophils # 10.7 H (1.3-7.7) k/uL APTT (22.0-30.0) sec Carbon Dioxide 34 H (22-30) mmol/L BUN 30 H (9-20) mg/dL Creatinine 1.32 H (0.66-1.25) mg/dL Glucose 136 H (74-99) mg/dL POC Glucose (mg/dL) (75-99) mg/dL Troponin I (0.000-0.034) ng/mL Cholesterol 203 H (<200) mg/dL LDL Cholesterol, Calc 121 H (0-99) mg/dL 06/09/20 06/09/20 06/09/20 Range/Units 05:19 09:04 11:31 WBC (3.8-10.6) k/uL Neutrophils # (1.3-7.7) k/uL APTT 36.9 H 37.3 H (22.0-30.0) sec Carbon Dioxide (22-30) mmol/L BUN (9-20) mg/dL Creatinine (0.66-1.25) mg/dL Glucose (74-99) mg/dL POC Glucose (mg/dL) 125 H (75-99) mg/dL Troponin I (0.000-0.034) ng/mL Cholesterol (<200) mg/dL LDL Cholesterol, Calc (0-99) mg/dL 06/09/20 Range/Units 11:31 WBC (3.8-10.6) k/uL Neutrophils # (1.3-7.7) k/uL APTT (22.0-30.0) sec Carbon Dioxide (22-30) mmol/L BUN (9-20) mg/dL Creatinine (0.66-1.25) mg/dL Glucose (74-99) mg/dL POC Glucose (mg/dL) (75-99) mg/dL Troponin I 27.300 H* (0.000-0.034) ng/mL Cholesterol (<200) mg/dL LDL Cholesterol, Calc (0-99) mg/dL Diabetes panel 06/08/20 06/09/20 06/09/20 Range/Units 17:33 05:19 05:19 Sodium 137 139 (137-145) mmol/L Potassium 4.1 4.0 (3.5-5.1) mmol/L Chloride 102 99 (98-107) mmol/L Carbon Dioxide 25 34 H (22-30) mmol/L BUN 31 H 30 H (9-20) mg/dL Creatinine 1.05 1.32 H (0.66-1.25) mg/dL Glucose 153 H 136 H (74-99) mg/dL Calcium 9.6 9.1 (8.4-10.2) mg/dL Triglycerides 122 (<150) mg/dL HDL Cholesterol 58 (40-60) mg/dL Calcium panel 06/08/20 06/09/20 Range/Units 17:33 05:19 Calcium 9.6 9.1 (8.4-10.2) mg/dL Pituitary panel 06/08/20 06/09/20 Range/Units 17:33 05:19 Sodium 137 139 (137-145) mmol/L Potassium 4.1 4.0 (3.5-5.1) mmol/L Chloride 102 99 (98-107) mmol/L Carbon Dioxide 25 34 H (22-30) mmol/L BUN 31 H 30 H (9-20) mg/dL Creatinine 1.05 1.32 H (0.66-1.25) mg/dL Glucose 153 H 136 H (74-99) mg/dL Calcium 9.6 9.1 (8.4-10.2) mg/dL Adrenal panel 06/08/20 06/09/20 Range/Units 17:33 05:19 Sodium 137 139 (137-145) mmol/L Potassium 4.1 4.0 (3.5-5.1) mmol/L Chloride 102 99 (98-107) mmol/L Carbon Dioxide 25 34 H (22-30) mmol/L BUN 31 H 30 H (9-20) mg/dL Creatinine 1.05 1.32 H (0.66-1.25) mg/dL Glucose 153 H 136 H (74-99) mg/dL Calcium 9.6 9.1 (8.4-10.2) mg/dL - Imaging Chest x-ray: report reviewed, image reviewed CT scan - abdomen: report reviewed, image reviewed CT scan - chest: report reviewed, image reviewed CT scan - pelvis: report reviewed, image reviewed EKG: image reviewed Additional studies: Heart catheterization and echocardiogram films reviewed by Dr. Martin Assessment and Plan Assessment: 1. 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 Cardiomyopathy with EF less than 20%, congestive heart failure with admission BNP 17,900 3. History of hypertension, currently hypotensive on IV Levophed 4. Hyperlipidemia 5. Never smoker Plan: The patient was seen and examined urgently in the cardiac catheterization lab. Chart/diagnostics were reviewed. Heart catheterization films and echocardiogram films were reviewed by Dr. Martin. The patient would be considered too high risk for surgical intervention. This was discussed between Dr. Martin and Dr. Crow. Dr. Crow will plan for PCI with Impella support tomorrow. The patient is being admitted to the intensive care unit on IV heparin with close monitoring. He is currently chest pain free. Continue medical management per Dr. Crow and Dr. Blancas. Thank you Dr. Crow for this consult. Please call us with any further questions. Time with Patient: Greater than 30
[2020-06-09] MEDS: HEPARIN SOD,PORK IN 0.45% NACL 25,000 UNIT in 0.45% NACL 1 250ML.BAG IV SCH (18:57)
[2020-06-09] MEDS: NOREPINEPHRINE 4 MG in SODIUM CHLORIDE 0.9% 250 ML IV SCH (19:00)
[2020-06-09] MEDS: FUROSEMIDE 10 MG/ML 2 ML VIAL IV SCH (19:02)
[2020-06-09] MEDS: SODIUM CHLORIDE 0.9% 1,000 ML IV SCH (19:02)
--- NOTE | 2020-06-09 20:05 | P.CNPUL ---
History of Present Illness Consult date: 06/09/20 Requesting physician: Sindy Crow Reason for consult: other (Critical care management) Chief complaint: Chest pain History of present illness: This is a 74-year-old gentleman who has not been seen by a primary care physician or any physician in approximately 50 years. He apparently has a h istory of hypertension. He takes no medications for it. He presented to the emergency room early this morning after developing significant chest discomfort last evening and felt as though he might . He states he has been having chest discomfort on and off for the past 2 months. Mostly with ambulation. He also has significant abdominal discomfort after eating at times. Computed tomography scan of the abdomen revealed mild thickening and diverticular changes involving the distal sigmoid inflammatory changes suggestive of acute diverticulitis. Less likely would be colitis. Noted bilateral sizable pleural effusions and basilar consolidation for interstitial pneumonitis or tenderness venous congestion. CT angiogram revealed no acute pulmonary embolism. Moderate bilateral pleural effusions. Mild subsegmental infiltrates and ground glass opacities in the mid and upper lung guillen. EKG revealed incomplete right bundle-branch block with septal infarct age undetermined. Non-ST segment elevation myocardial with infarction and elevated troponins. Echocardiogram reveals an ejection fraction of less than 20% with apical thrombus. White count 13.1. Hemoglobin 16.0. Sodium 139. Potassium 4.0. Creatinine 1.32. Troponin 30.3, 27.3. D-dimer 2.16. AST 353. ALT 50. Santacruz virus not detected. He was subsequently taken to [facility] was found to have a 99% left main disease, 8090% proximal/mid RCA disease, 80% proximal circumflex disease, total occlusion of the LAD. He was initiated on heparin and transferred to the intensive care unit. He is seen today in consultation. He is currently resting fairly comfortably in bed. Awake and alert in no acute distress. Maintaining O2 saturations in the 90s on room air. Slightly tachycardic. He is requiring norepinephrine at 0.07 mcg/kg/m. 0.9 normal saline at 50 MLS per hour. Review of Systems REVIEW OF SYSTEMS: CONSTITUTIONAL: Denies any recent significant weight loss or weight gain. EYES: Denies change in vision. EARS, NOSE, MOUTH, THROAT: Denies headaches, denies sore throat. CARDIOVASCULAR: Positive for chest pain, palpitations no syncopal episodes. RESPIRATORY: Denies shortness of breath, cough, congestion or hemoptysis. GASTROINTESTINAL: Denies change in appetite, denies abdominal pain GENITOURINARY: Denies hematuria, denies infections. MUSKULOSKELETAL: Denies pain, denies swelling. INTEGUMENTARY: Denies rash, denies eczema. NEUROLOGICAL: Denies recent memory loss, no recent seizure activity. PSYCHIATRIC: Denies anxiety, denies depression. HEMATOLOGIC/LYMPHATIC: Denies anemia, denies enlarged lymph nodes. Past Medical History Past Medical History: Hyperlipidemia, Hypertension Additional Past Medical History / Comment(s): pt states no health history History of Any Multi-Drug Resistant Organisms: None Reported Past Surgical History: Orthopedic Surgery Additional Past Surgical History / Comment(s): left shoulder Past Anesthesia/Blood Transfusion Reactions: No Reported Reaction Past Psychological History: No Psychological Hx Reported Smoking Status: Never smoker Past Alcohol Use History: None Reported Past Drug Use History: None Reported Medications and Allergies Home Medications Medication Instructions Recorded Confirmed Type Omeprazole Magnesium [PriLOSEC OTC] 20 mg PO DAILY PRN 06/08/20 06/08/20 History Allergies Allergy/AdvReac Type Severity Reaction Status Date / Time No Known Allergies Allergy Verified 06/08/20 11:30 Physical Exam Vitals: Vital Signs Temp Pulse Pulse Pulse Resp BP BP 06/09/20 18:30 113 H 11 L 111/81 06/09/20 18:20 113 H 9 L 111/81 06/09/20 18:10 112 H 16 108/81 06/09/20 18:00 112 H 16 104/78 06/09/20 17:50 114 H 20 104/78 06/09/20 17:40 116 H 25 H 102/46 06/09/20 17:30 113 H 17 06/09/20 16:18 109 H 16 101/77 06/09/20 15:43 106 H 16 106/79 06/09/20 15:29 109 H 103/82 06/09/20 15:15 106 H 95/77 06/09/20 15:00 108 H 95/68 06/09/20 14:45 108 H 94/69 06/09/20 12:13 113 H 16 106/77 06/09/20 09:00 97.8 F 108 H 16 102/72 06/09/20 08:20 97.6 F 120 H 16 109/75 12/11/20 04:00 97.8 F 123 H 17 113/78 06/09/20 02:00 125 H 19 06/09/20 00:00 97.6 F 125 H 19 107/78 06/08/20 23:30 122 H 16 94/67 06/08/20 20:41 123 H 16 107/79 Pulse Ox 06/09/20 18:30 96 06/09/20 18:20 96 06/09/20 18:10 95 06/09/20 18:00 93 L 06/09/20 17:50 93 L 06/09/20 17:40 93 L 06/09/20 17:30 95 06/09/20 16:18 95 06/09/20 15:43 96 06/09/20 15:29 96 06/09/20 15:15 95 06/09/20 15:00 96 06/09/20 14:45 94 L 06/09/20 12:13 93 L 06/09/20 09:00 93 L 06/09/20 08:20 94 L 06/09/20 04:00 95 06/09/20 02:00 06/09/20 00:00 95 06/08/20 23:30 98 06/08/20 20:41 94 L Intake and Output 06/09/20 06/09/20 06/09/20 06:59 14:59 22:59 Intake Total 323.494 382.394 50 Output Total 200 525 100 Balance 123.494 -142.606 -50 Intake: IV 308 50 Sodium Chloride 0.9% 1, 50 000 ml @ 50 mls/hr IV . Q20H [facility] Rx#:[id number] Intake, IV Titration 323.494 74.394 0 Amount Furosemide 100 mg In 163.333 Sodium Chloride 0.9% 90 ml @ 10 MG/HR 10 mls/hr IV .Q10H [facility] Rx#: [id number] Heparin Sod,Pork in 0.45% 160.161 74.394 0 NaCl 25,000 unit In 0.45 % NaCl 1 250ml.bag @ 12 UNITS/KG/HR 8.981 mls/hr IV .Q24H [facility] Rx#: [id number] Output: Urine 200 525 100 Other: Voiding Method Toilet Toilet Urinal Urinal Weight 76.2 kg GENERAL EXAM: Alert, 74-year-old gentleman, on room air, currently comfortable in no apparent distress. HEAD: Normocephalic. EYES: Normal reaction of pupils, equal size. NOSE: Clear with pink turbinates. THROAT: No erythema or exudates. NECK: No masses, no JVD. CHEST: No chest wall deformity. LUNGS: Equal air entry with crackles in the bilateral posterior bases. CVS: S1 and S2 normal with no audible murmur, regular rhythm. ABDOMEN: No hepatosplenomegaly, normal bowel sounds, no guarding or rigidity. SPINE: No scoliosis or deformity SKIN: No rashes CENTRAL NERVOUS SYSTEM: No focal deficits, tone is normal in all 4 extremities. EXTREMITIES: There is no peripheral edema. No clubbing, no cyanosis. Peripheral pulses are intact. Results - Laboratory Findings CBC and BMP: 06/09/20 05:19 06/09/20 05:19 PT/INR, D-dimer PT 10.4 sec (9.0-12.0) 06/08/20 10:50 INR 1.0 (<1.2) 06/08/20 10:50 D-Dimer 2.16 mg/L FEU (<0.60) H 06/08/20 10:50 Abnormal lab findings: Abnormal Labs 06/08/20 06/08/20 06/08/20 10:50 10:50 10:50 WBC 18.3 H Neutrophils # 15.9 H Monocytes # 1.1 H APTT D-Dimer 2.16 H Carbon Dioxide BUN 33 H Creatinine 1.26 H Glucose 192 H POC Glucose (mg/dL) Calcium 10.3 H Total Bilirubin 1.4 H AST 353 H ALT 50 H Troponin I Cholesterol LDL Cholesterol, Calc Urine Protein Hyaline Casts Urine Mucus 06/08/20 06/08/20 06/08/20 10:50 11:08 14:38 WBC Neutrophils # Monocytes # APTT D-Dimer Carbon Dioxide BUN Creatinine Glucose POC Glucose (mg/dL) Calcium Total Bilirubin AST ALT Troponin I 18.200 H* 24.200 H* Cholesterol LDL Cholesterol, Calc Urine Protein 1+ H Hyaline Casts 52 H Urine Mucus Moderate H 06/08/20 06/08/20 06/08/20 17:33 17:33 17:33 WBC Neutrophils # Monocytes # APTT 46.8 H D-Dimer Carbon Dioxide BUN 31 H Creatinine Glucose 153 H POC Glucose (mg/dL) Calcium Total Bilirubin AST ALT Troponin I 30.300 H* Cholesterol LDL Cholesterol, Calc Urine Protein Hyaline Casts Urine Mucus 06/09/20 06/09/20 06/09/20 05:19 05:19 05:19 WBC 13.1 H Neutrophils # 10.7 H Monocytes # APTT D-Dimer Carbon Dioxide 34 H BUN 30 H Creatinine 1.32 H Glucose 136 H POC Glucose (mg/dL) Calcium Total Bilirubin AST ALT Troponin I Cholesterol 203 H LDL Cholesterol, Calc 121 H Urine Protein Hyaline Casts Urine Mucus 06/09/20 06/09/20 06/09/20 05:19 09:04 11:31 WBC Neutrophils # Monocytes # APTT 36.9 H 37.3 H D-Dimer Carbon Dioxide BUN Creatinine Glucose POC Glucose (mg/dL) 125 H Calcium Total Bilirubin AST ALT Troponin I Cholesterol LDL Cholesterol, Calc Urine Protein Hyaline Casts Urine Mucus 06/09/20 06/09/20 11:31 17:23 WBC Neutrophils # Monocytes # APTT D-Dimer Carbon Dioxide BUN Creatinine Glucose POC Glucose (mg/dL) 148 H Calcium Total Bilirubin AST ALT Troponin I 27.300 H* Cholesterol LDL Cholesterol, Calc Urine Protein Hyaline Casts Urine Mucus - Diagnostic Findings Chest x-ray: image reviewed Assessment and Plan Assessment: 1 Acute non-ST segment elevation myocardial infarction in a patient found to have severe coronary artery disease including 99% left main, 80-90% proximal/mid RCA, 80% proximal circumflex, total occlusion of the LAD. 2 Severe cardiomyopathy with ejection fraction less than 20% 3 Acute exacerbation of systolic congestive heart failure 4 History of hypertension, currently hypotensive requiring norepinephrine 5 History of medication noncompliance 6 Nonsmoker Plan: The patient was seen and evaluated by Dr. Buchanan Chest x-ray, labs reviewed Currently hypotensive requiring norepinephrine Cardiothoracic surgery teams the patient to high risk for surgery The plan is for PCI with Impella support tomorrow morning Remains on a heparin drip for now We will continue to monitor closely here in the ICU We will continue to follow make further recommendations based on his clinical status I, the cosigning physician, performed a history & physical examination of the patient. Lungs sounds with bibasilar crackles, diminished Maintaining good O2 s aturations in the 90s on room air. I discussed the assessment and plan of care with my nurse practitioner, Kassidy Lujan. I attest to the above consultation as dictated by her. Time with Patient: Greater than 30
[2020-06-10] MEDS: FUROSEMIDE 10 MG/ML 2 ML VIAL IV SCH ×3 (02:38→17:06)
[2020-06-10 05:37] LABS: Basophils % (A) 0 %; Eosinophils # (A) 0.1 k/uL (0-0.7); Eosinophils % (A) 1 %; HCT 43.1 % (39.0-53.0); HGB 14.4 gm/dL (13.0-17.5); Lymphocytes # (A) 1.4 k/uL (1.0-4.8); Lymphocytes % (A) 11 %; MCH 30.1 pg (25.0-35.0); MCHC 33.3 g/dL (31.0-37.0); MCV 90.5 fL (80.0-100.0); Mean Platelet Volume 9.5; Monocytes # (A) 0.8 k/uL (0-1.0); Monocytes % (A) 6 %; Neutrophils # (A) 10.6 k/uL (1.3-7.7); Neutrophils % (A) 82 %; Platelet Count 336 k/uL (150-450); RBC 4.76 m/uL (4.30-5.90); RDW 13.5 % (11.5-15.5)
[2020-06-10 06:27] LABS: Calcium 8.5 mg/dL (8.4-10.2)
[2020-06-10] MEDS: NOREPINEPHRINE 4 MG in SODIUM CHLORIDE 0.9% 250 ML IV SCH (08:19)
--- NOTE | 2020-06-10 08:31 | P.PN ---
Subjective Progress Note Date: 06/10/20 Principal diagnosis: Severe coronary artery disease with severe ischemic cardiomyopathy This is a 74-year-old gentleman who has not been seen by a primary care physician or any physician in approximately 50 years. He apparently has a history of hypertension. He takes no medications for it. He presented to the emergency room early this morning after developing significant chest discomfort last evening and felt as though he might . He states he has been having chest discomfort on and off for the past 2 months. Mostly with ambulation. He also has significant abdominal discomfort after eating at times. Computed tomography scan of the abdomen revealed mild thickening and diverticular changes involving the distal sigmoid inflammatory changes suggestive of acute dive rticulitis. Less likely would be colitis. Noted bilateral sizable pleural effusions and basilar consolidation for interstitial pneumonitis or tenderness venous congestion. CT angiogram revealed no acute pulmonary embolism. Moderate bilateral pleural effusions. Mild subsegmental infiltrates and ground glass opacities in the mid and upper lung guillen. EKG revealed incomplete right bundle-branch block with septal infarct age undetermined. Non-ST segment elevation myocardial with infarction and elevated troponins. Echocardiogram reveals an ejection fraction of less than 20% with apical thrombus. White count 13.1. Hemoglobin 16.0. Sodium 139. Potassium 4.0. Creatinine 1.32. Troponin 30.3, 27.3. D-dimer 2.16. AST 353. ALT 50. Santacruz virus not detected. He was subsequently taken to [facility] was found to have a 99% left main disease, 8090% proximal/mid RCA disease, 80% proximal circumflex disease, total occlusion of the LAD. He was initiated on heparin and transferred to the intensive care unit. He is seen today in consultation. He is currently resting fairly comfortably in bed. Awake and alert in no acute distress. Maintaining O2 saturations in the 90s on room air. Slightly tachycardic. He is requiring norepinephrine at 0.07 mcg/kg/m. 0.9 normal saline at 50 MLS per hour. The patient is seen today 06/10/2020 in follow-up in the intensive care unit. He is currently resting comfortably in bed. Awake and alert in no acute distress. He is maintaining O2 saturations in the 90s on 2 L/m per nasal cannula. He is still requiring norepinephrine at 0.04 mics per kilogram per minute. 0.9 normal saline at 50 MLS per hour. Remains on heparin drip. At one point last night the patient was confused and got up out of bed. He told his right groin venous sheath out. The areas remains soft. No significant hematoma. Currently he is alert and oriented times. A health and safety advisor at the bedside. White count 13.0. Hemoglobin 14.4. Platelets 336. Sodium 137. Potas sium 4.0. Creatinine 1.02. The plan is for in Impella placement and PCI Objective - Vital Signs Vital signs: Vital Signs Temp 97.8 F 06/10/20 08:00 Pulse 111 H 06/10/20 08:00 Resp 18 06/10/20 08:00 BP 103/83 06/10/20 08:00 Pulse Ox 95 06/10/20 08:00 Intake & Output 06/09/20 06/10/20 06/10/20 18:59 06:59 18:59 Intake Total 432.394 650 304 Output Total 625 600 40 Balance -192.606 50 264 Weight 77 kg Intake: IV 358 650 50 Sodium Chloride 0.9% 1, 50 650 50 000 ml @ 50 mls/hr IV . Q20H [facility] Rx#:[id number] Intake, IV Titration 74.394 254 Amount Heparin Sod,Pork in 0.45% 74.394 NaCl 25,000 unit In 0.45 % NaCl 1 250ml.bag @ 12 UNITS/KG/HR 8.981 mls/hr IV .Q24H [facility] Rx#: [id number] Norepinephrine 4 mg In 254 Sodium Chloride 0.9% 250 ml @ 0.05 MCG/KG/MIN 14. 516 mls/hr IV .[id number] [facility] Rx#:[id number] Output: Urine 625 600 40 Other: Voiding Method Toilet Indwelling Catheter Urinal - Exam GENERAL EXAM: Alert, pleasant 74-year-old gentleman, on 2 L nasal cannula, comfortable in no apparent distress. HEAD: Normocephalic. EYES: Normal reaction of pupils, equal size. NOSE: Clear with pink turbinates. THROAT: No erythema or exudates. NECK: No masses, no JVD. CHEST: No chest wall deformity. LUNGS: Equal air entry with crackles in the bilateral posterior bases. CVS: S1 and S2 normal with no audible murmur, regular rhythm. ABDOMEN: No hepatosplenomegaly, normal bowel sounds, no guarding or rigidity. SPINE: No scoliosis or deformity SKIN: No rashes CENTRAL NERVOUS SYSTEM: No focal deficits, tone is normal in all 4 extremities. EXTREMITIES: There is no peripheral edema. No clubbing, no cyanosis. Periph eral pulses are intact. - Labs CBC & Chem 7: 06/10/20 04:39 06/10/20 04:39 Labs: Abnormal Lab Results - Last 24 Hours (Table) 06/09/20 06/09/20 06/09/20 Range/Units 05:19 09:04 11:31 WBC (3.8-10.6) k/uL Neutrophils # (1.3-7.7) k/uL APTT 37.3 H (22.0-30.0) sec Carbon Dioxide 34 H (22-30) mmol/L BUN 30 H (9-20) mg/dL Creatinine 1.32 H (0.66-1.25) mg/dL Glucose 136 H (74-99) mg/dL POC Glucose (mg/dL) 125 H (75-99) mg/dL Troponin I (0.000-0.034) ng/mL 06/09/20 06/09/20 06/09/20 Range/Units 11:31 17:23 21:10 WBC (3.8-10.6) k/uL Neutrophils # (1.3-7.7) k/uL APTT 51.4 H (22.0-30.0) sec Carbon Dioxide (22-30) mmol/L BUN (9-20) mg/dL Creatinine (0.66-1.25) mg/dL Glucose (74-99) mg/dL POC Glucose (mg/dL) 148 H (75-99) mg/dL Troponin I 27.300 H* (0.000-0.034) ng/mL 06/10/20 06/10/20 Range/Units 04:39 04:39 WBC 13.0 H (3.8-10.6) k/uL Neutrophils # 10.6 H (1.3-7.7) k/uL APTT (22.0-30.0) sec Carbon Dioxide (22-30) mmol/L BUN 38 H (9-20) mg/dL Creatinine (0.66-1.25) mg/dL Glucose 137 H (74-99) mg/dL POC Glucose (mg/dL) (75-99) mg/dL Troponin I (0.000-0.034) ng/mL Assessment and Plan Assessment: 1 Acute non-ST segment elevation myocardial infarction in a patient found to myers ve severe coronary artery disease including 99% left main, 80-90% proximal/mid RCA, 80% proximal circumflex, total occlusion of the LAD. 2 Severe cardiomyopathy with ejection fraction less than 20% 3 Acute exacerbation of systolic congestive heart failure 4 History of hypertension, currently hypotensive requiring norepinephrine 5 History of medication noncompliance 6 Nonsmoker Plan: The patient was seen and evaluated by Dr. Buchanan Currently hypotensive requiring norepinephrine Remains on a heparin drip The plan is for PCI with Impella support today We will continue to follow make further recommendations based on his clinical status I, the cosigning physician, performed a history & physical examination of the patient. Lungs sounds with bibasilar crackles, diminished Maintaining good O2 saturations in the 90s on 2 L/m nasal cannula. I discussed the assessment and plan of care with my nurse practitioner, Kassidy Lujan. I attest to the above note as dictated by her.
[2020-06-10] MEDS ORDERED: CLOPIDOGREL 75 MG TAB PO SCH (09:00)
[2020-06-10] MEDS: carvediloL 3.125 MG TAB PO SCH ×2 (09:25→21:36)
[2020-06-10] MEDS: ASPIRIN 81 MG PO SCH (09:25)
[2020-06-10] MEDS: POTASSIUM CHLORIDE ER 20 MEQ TAB.ER PO SCH (09:25)
[2020-06-10] MEDS: ATORVASTATIN 80 MG TAB PO SCH (09:25)
[2020-06-10] MEDS: SODIUM CHLORIDE 0.9% 1,000 ML IV SCH ×2 (10:17→16:57)
[2020-06-10] MEDS ORDERED: LIDOCAINE 1% INJ 10MG/ML (20 ML MDV) ONE ×2 (10:55→12:07)
[2020-06-10] MEDS ORDERED: IV FLUID CONTINUATION 625 ML IV ONE (11:38)
[2020-06-10] MEDS ORDERED: MIDAZOLAM 2 MG/2 ML VIAL IVP ONE (11:59)
[2020-06-10] MEDS ORDERED: LIDOCAINE 1% INJ 10MG/ML (20 ML MDV) SQ ONE (12:01)
[2020-06-10] MEDS ORDERED: HEPARIN SODIUM 1,000 UN/ML (10ML VL) ONE (12:08)
[2020-06-10] MEDS: HEPARIN SODIUM 1,000 UN/ML (10ML VL) IV ONE ×3 (12:23→14:05)
[2020-06-10] MEDS ORDERED: IOPAMIDOL-370 100ML BTL INJ ONE ×3 (13:04→14:30)
[2020-06-10] MEDS ORDERED: HEPARIN SODIUM 1,000 UN/ML (10ML VL) IV ONE (14:22)
[2020-06-10] MEDS: NITROGLYCERIN 1000MCG/10ML SYRINGE INTRACORON ONE ×3 (14:28→15:02)
[2020-06-10] MEDS ORDERED: IOPAMIDOL-370 50ML BTL INJ ONE (14:45)
[2020-06-10] MEDS ORDERED: TICAGRELOR 90 MG TAB ONE (14:48)
[2020-06-10] MEDS ORDERED: TICAGRELOR 90 MG TAB PO ONE (14:57)
[2020-06-10] MEDS: HEPARIN SOD,PORK IN 0.45% NACL 25,000 UNIT in 0.45% NACL 1 250ML.BAG IV SCH (15:32)
[2020-06-10] MEDS ORDERED: IOPAMIDOL-370 125ML BTL INJ ONE (15:38)
--- NOTE | 2020-06-10 16:41 | CC ---
CARDIAC CATHETERIZATION REPORT PROCEDURE PERFORMED: PTCA and stenting of left main, lad, circumflex and RCA with a drug-eluting stent. PERFORMED BY: Dr. Edinson Crow. SEDATION: Moderate conscious sedation time was 3 hours and 25 minutes. Patient was administered Versed. His oxygen saturation, hemodynamics and EKG were monitored closely. CLINICAL INFORMATION: Mr. Matheus Piña is a 74-year-old gentleman who came into the hospital last week in congestive heart failure and had a non-ST elevation SC. Cardiac catheterization performed yesterday revealed a significant left main stenosis of 99% and a total occlusion of the LAD. He also had a 90% stenosis involving the RCA, which was a superdominant vessel in the proximal/midportion and also circumflex in the proximal portion. He was evaluated by surgery and advised to proceed with a percutaneous intervention and after due discussion with the patient and his girlfriend, I recommended Impella supported multivessel PCI and he was brought in for the procedure today. The right radial site was clean and dry where he had a previous intervention from but the right femoral side where I placed the femoral sheath was occluded because patient stood up in the ICU and then the sheath had to be taken out with a small hematoma in the right groin area. PROCEDURE NOTE: Under local anesthesia and strict aseptic precautions, a 6-[place] introducer was placed in the left femoral artery and another 6-[place] introducer in the right femoral artery. From the left femoral approach, I proceeded with the Impella placement. I exchanged a 6-[place] introducer to an 8-[place] dilator and over the dilator, I pre closed with two Perclose devices, one at 10 o'clock, one at 2 o'clock position and then advanced a guidewire and went with a 10-[place] dilator and subsequently a 13-[place] introducer. Under fluoroscopic guidance, Impella was positioned in the left ventricle with a very good waveform and good hemodynamics. This was a Impella 2.5, and a cardiac output of 2.5 L was achieved. Subsequently, I went ahead with the PCI procedure. From the right femoral approach through the 7-[place] introducer, I advanced a 6-[place] standard right guide catheter, positioned it in the right coronary. I used a run-through wire and crossed the lesion and kept it distally. A 3.5 x 20 mm NC Trek balloon was used to pre- dilate the lesion and I then deployed a 28 mm long 4.0 caliber Xience stent. Excellent angiographic result was achieved. There was immediately filling of the entire LAD almost to the midportion where there was a chronic total occlusion. There was significant improvement in LAD perfusion after this. The patient was initiated on intravenous heparin and his ACT was 285. He also received 180 mg of Brilinta and already had received an aspirin. Periodical ACT was checked and kept between 250 and 300 on average. I then turned my attention to the left coronary artery. Using a 7- [place] JL 3.5 guide catheter, I cannulated the left coronary artery. A run-through short wire was used to cross the circumflex lesion. Wire was kept into the circumflex marginal. I tried to cross the LAD and I had considerable difficulty. Initially I used a SuperCross straight with a whisper long wire. With this I was unsuccessful. I switched over to a super cross 45 degrees angle and a Whisper wire with this I crossed the total occlusion in the LAD and I was able to advance the wire all the way distally. The proximal LAD was dilated initially with a 2.0 balloon and subsequently with multiple larger balloons. LAD perfusion was fair, but there was a chronic total occlusion in the mid LAD as well. I then advanced and positioned a 2.75, a 15 mm long Xience stent in the proximal circumflex with an excellent angiographic result. I advanced and positioned another 2.5 caliber, 8 mm long Xience stent and telescoped this into the distal portion of the previously placed 2.75 stent. This stent ended right at the bifurcation of the circumflex. Excellent angiographic result was achieved. I then turned my attention to the LAD. The LAD had a very tight lesion as did the left main. I went up with initially 2.0 balloon and eventually with a 3.5 NC trek balloon, I was able to pre-dilate the lesion. I advanced and positioned a 15 mm long 4.0 caliber Xience stent. The stent was placed just after the origin of the left main extending well into the LAD. This stent was deployed at 13 or 14 atmospheres. Excellent angiographic result was achieved. I then took the wire out of the circumflex and rewired the circumflex through the left main stent and advanced over this wire and another 2.5 caliber 12 mm long NC Trek balloon. I advanced a 3.0, 12 mm NC Trek balloon into the LAD and the proximal end of both balloons were in the left main. A kissing balloon dilatation was performed. Excellent angiographic result was achieved. Final angiograms revealed at this point that LAD had a chronic total occlusion in the midportion, but was well perfused. After some deliberation, I proceeded with a chronic total occlusion intervention. Using a run-through wire, with some manipulation, I was able to cross the total occlusion and the wire was kept distally. I could not advance the 2.0 balloon. A 1.5 12 mm Trek balloon was used to pre dilate at the site of total occlusion in the mid LAD and then gradually advanced to 2.5 NC Trek balloon of 20 mm length. Eventually, I deployed a 28 mm long 2.5 caliber Xience stent into the mid LAD distal end of the stent was beyond the diagonal branch. Between this 28 mm stent and the previously placed 4.0 stent, there was a small gap and this was addressed with a 3.25 8 mm Xience stent at 14 atmospheres. The entire LAD segment was then dilated with 2.75 and 3.25 balloons. Excellent angiographic result was achieved without complication. The Impella was removed after reducing the cardiac output up to P2 level. The sheath was taken out and a Perclose devices used to get good hemostasis. Excellent hemostasis was achieved on the left side. Subsequently, the 7-[place] introducer from the right side was also taken out and an 8-[place] Angio-Seal was used to secure hemostasis. There was still a small hematoma and oozing a FemoStop was applied on the right side. Excellent angiographic result without complication was achieved. Results were discussed with the patient and his girlfriend. He was sent to the ICU in a stable condition and report was called by me personally to the nurse. Prognosis remains guarded but I was very pleased with the overall result. MMODL / IJN: [id number] /
[2020-06-10] MEDS: LOSARTAN 25 MG TAB PO SCH (18:07)
--- NOTE | 2020-06-10 18:18 | P.PN ---
Subjective Progress Note Date: 06/10/20 (delayed charting seen at 1020) Principal diagnosis: chest pain Patient is a 74-year-old male for history of hypertension, he has not seen a primary care physician in approximately 40-50 years who presented to the emergency department with complaints of chest pain. In the ER he underwent an extensive evaluation. Initial EKG showed sinus tachycardia with an incomplete right bundle-branch block. Initial laboratory analysis showed a troponin of 18.2. Cardiology was notified. Stat echocardiogram was ordered which revealed ejection fraction of less than 20%. With severe left global hypokinesis. CT abdomen and pelvis demonstrated wall thickening with diverticular changes in the distal sigmoid colon inflammatory changes suggestive acute diverticulitis, mucosal lesion not excluded along with bilateral pleural effusions. CT of the chest showed no acute pulmonary embolism but moderate bilateral pleural effusions. Patient was subsequently admitted to the ICU and started on a heparin drip. He was seen by cardiology and underwent cardiac catheterization on 06/09. He was found have triple-vessel disease and no intervention was performed. CT surgery was consulted who felt he was not a surgical candidate at this point in time. He was hypotensive requiring norepinephrine. Plan was for percutaneous intervention as patient was not a candidate for cardiac bypass s urgery. He did develop some confusion requiring area safety manager. Patient seen and examined at bedside. He denies any chest pain, shortness breath, nausea, or vomiting. He is feeling slightly anxious about the procedure he will undergo today. General: Ill appearing, mild distress when attempting to move around, appears at stated age Derm: warm, dry Head: atraumatic, normocephalic, symmetric Eyes: EOMI, no lid lag, anicteric sclera Mouth: no lip lesion, mucus membranes moist Cardiovascular: S1S2 reg, no murmur, positive posterior tibial pulse bilateral, Lungs: Decreased breath sounds bilateral , no accessory muscle use Abdominal: soft, nontender to palpation, no guarding, no appreciable or ganomegaly Ext: no gross muscle atrophy, no edema, no contractures Neuro: CN II-XI grossly intact, no focal neuro deficits Psych: Alert, oriented, appropriate affect Non-ST segment elevated myocardial infarction with three-vessel coronary artery disease -Status post percutaneous intervention with placement of 6 drug-eluting stent -Not a candidate for coronary artery bypass grafting -Cardiology and cardiothoracic surgery recommendations appreciated -Aspirin, Ticagrelor, statin Ischemic cardiomyopathy with ejection fraction less than 20% and cardiogenic shock, acute congestive heart failure -Continue to decrease norepinephrine as able -We will start Coreg and losartan once blood pressures are stable -Cardiology recommendations -Likely would benefit from life vest on discharge -Lasix -Strict I's and O's, daily weight Acute encephalopathy - supprotive care - frequent reorientation Leukocytosis -Suspect reactive -Continue to follow CBC and monitor fever profile Dyslipidemia -Statin therapy History of hypertension DVT prophylaxis: heparin Discussed with: patient, nursing Anticipated discharge: 4-[address]: home vs SNF A total of 45 minutes was spent on the care of this complex patient more than 50% of the time was spent in counseling and care coordination. Objective - Vital Signs Vital signs: Vital Signs Temp 97.8 F 06/10/20 16:00 Pulse 114 H 06/10/20 18:00 Resp 18 06/10/20 18:00 BP 100/75 06/10/20 18:00 Pulse Ox 93 L 06/10/20 18:00 Intake & Output 06/09/20 06/10/20 06/10/20 18:59 06:59 18:59 Intake Total 432.140 166 0231.017 Output Total 270 739 3661 Balance -192.606 50 -78.983 Weight 77 kg Intake: IV 358 650 525 Sodium Chloride 0.9% 1, 50 650 200 000 ml @ 50 mls/hr IV . Q20H [facility] Rx#:[id number] Intake, IV Titration 74.394 501.017 Amount Heparin Sod,Pork in 0.45% 74.394 NaCl 25,000 unit In 0.45 % NaCl 1 250ml.bag @ 12 UNITS/KG/HR 8.981 mls/hr IV .Q24H [facility] Rx#: [id number] Norepinephrine 4 mg In 276.017 Sodium Chloride 0.9% 250 ml @ 0.05 MCG/KG/MIN 14. 516 mls/hr IV .[id number] [facility] Rx#:[id number] Sodium Chloride 0.9% 1, 225 000 ml @ 75 mls/hr IV . [id number] [facility] Rx#:[id number] Oral 50 Output: Urine 743 518 2910 Other: Voiding Method Toilet Indwelling Catheter Indwelling Catheter Urinal - Labs CBC & Chem 7: 06/10/20 04:39 06/10/20 04:39 Labs: Abnormal Lab Results - Last 24 Hours (Table) 06/09/20 06/10/20 06/10/20 Range/Units 21:10 04:39 04:39 WBC 13.0 H (3.8-10.6) k/uL Neutrophils # 10.6 H (1.3-7.7) k/uL APTT 51.4 H (22.0-30.0) sec BUN 38 H (9-20) mg/dL Glucose 137 H (74-99) mg/dL
[2020-06-10] MEDS: ALPRAZolam 0.25 MG TAB PO SCH (21:36)
[2020-06-11] MEDS: FUROSEMIDE 10 MG/ML 2 ML VIAL IV SCH ×2 (00:40→08:17)
[2020-06-11] MEDS: NOREPINEPHRINE 4 MG in SODIUM CHLORIDE 0.9% 250 ML IV SCH (01:46)
[2020-06-11 05:04] LABS: Basophils % (A) 0 %; Eosinophils % (A) 0 %; HCT 41.5 % (39.0-53.0); HGB 13.3 gm/dL (13.0-17.5); Lymphocytes # (A) 1.1 k/uL (1.0-4.8); Lymphocytes % (A) 11 %; MCH 29.6 pg (25.0-35.0); MCHC 32.1 g/dL (31.0-37.0); MCV 92.2 fL (80.0-100.0); Mean Platelet Volume 8.6; Monocytes # (A) 0.9 k/uL (0-1.0); Monocytes % (A) 9 %; Neutrophils # (A) 7.6 k/uL (1.3-7.7); Neutrophils % (A) 77 %; Platelet Count 246 k/uL (150-450); RBC 4.51 m/uL (4.30-5.90); RDW 13.6 % (11.5-15.5); WBC 9.9 k/uL (3.8-10.6)
[2020-06-11 05:10] LABS: African American GFR (CKD) >90 (>60 ml/min/1.73 sqM); Anion Gap 8 mmol/L; Blood Urea Nitrogen 38 mg/dL (9-20); Calcium 7.9 mg/dL (8.4-10.2); Carbon Dioxide 25 mmol/L (22-30); Chloride 105 mmol/L (98-107); Glucose 110 mg/dL (74-99); Non-African American GFR(CKD) 81 (>60 ml/min/1.73 sqM); Potassium 3.9 mmol/L (3.5-5.1); Sodium 138 mmol/L (137-145)
--- NOTE | 2020-06-11 07:07 | P.PN ---
Subjective Progress Note Date: 06/11/20 Severe coronary artery disease with severe ischemic cardiomyopathy This is a 74-year-old gentleman who has not been seen by a primary care physician or any physician in approximately 50 years. He apparently has a history of hypertension. He takes no medications for it. He presented to the emergency room early this morning after developing significant chest discomfort last evening and felt as though he might . He states he has been having chest discomfort on and off for the past 2 months. Mostly with ambulation. He also has significant abdominal discomfort after eating at times. Computed t omography scan of the abdomen revealed mild thickening and diverticular changes involving the distal sigmoid inflammatory changes suggestive of acute diverticulitis. Less likely would be colitis. Noted bilateral sizable pleural effusions and basilar consolidation for interstitial pneumonitis or tenderness venous congestion. CT angiogram revealed no acute pulmonary embolism. Moderate bilateral pleural effusions. Mild subsegmental infiltrates and ground glass opacities in the mid and upper lung guillen. EKG revealed incomplete right bundle-branch block with septal infarct age undetermined. Non-ST segment elevation myocardial with infarction and elevated troponins. Echocardiogram reveals an ejection fraction of less than 20% with apical thrombus. White count 13.1. Hemoglobin 16.0. Sodium 139. Potassium 4.0. Creatinine 1.32. Troponin 30.3, 27.3. D-dimer 2.16. AST 353. ALT 50. Santacruz virus not detected. He was subsequently taken to [facility] was found to have a 99% left main disease, 8090% proximal/mid RCA disease, 80% proximal circumflex disease, total occlusion of the LAD. He was initiated on heparin and transferred to the intensive care unit. He is seen today in consultation. He is currently resting fairly comfortably in bed. Awake and alert in no acute distress. Maintaining O2 saturations in the 90s on room air. Slightly tachycardic. He is requiring norepinephrine at 0.07 mcg/kg/m. 0.9 normal saline at 50 MLS per hour. The patient is seen today 06/10/2020 in follow-up in the intensive care unit. He is currently resting comfortably in bed. Awake and alert in no acute distress. He is maintaining O2 saturations in the 90s on 2 L/m per nasal cannula. He is still requiring norepinephrine at 0.04 mics per kilogram per minute. 0.9 normal saline at 50 MLS per hour. Remains on heparin drip. At one point last night the patient was confused and got up out of bed. He told his right groin venous sheath out. The areas remains soft. No significant hem atoma. Currently he is alert and oriented times. A director drug safety at the bedside. White count 13.0. Hemoglobin 14.4. Platelets 336. Sodium 137. Potassium 4.0. Creatinine 1.02. The plan is for in Impella placement and PCI On 06/13/2020, the patient is post multi-stent insertion and the patient has a stent in the left main, several in LAD, one in the RCA and one in the circumflex. The patient did require impella. The patient did well. The patient was brought into the intensive care unit. Currently is hemodynamically with pressors and this was gradually weaned off and currently is off the norepinephrine infusion. Is on oxygen at 2 L per minute nasal cannula. Heart rate is sinus at the rate of 92 beats per minute. He is fully oriented and awake and alert. Blood work essentially within normal limits. Creatinine 0.7 with hemoglobin 9.9. Chest x-ray from today is still pending. The patient on IV heparin. The patient is on Lasix 20 mg IV push every 12 hours. He was started also on beta blockers with Coreg 3.125 mg by mouth twice a day. He is also on a combination of aspirin and Brillinta Objective - Vital Signs Vital signs: Vital Signs Temp 97.8 F 06/11/20 00:00 Pulse 98 06/11/20 06:00 Resp 20 06/11/20 06:00 BP 91/68 06/11/20 06:00 Pulse Ox 93 L 06/11/20 06:00 Intake & Output 06/10/20 06/11/20 06/11/20 18:59 06:59 18:59 Intake Total 1076.017 625 Output Total 1155 1230 Balance -78.983 -605 Intake: IV 525 550 Sodium Chloride 0.9% 1, 200 550 000 ml @ 50 mls/hr IV . Q20H [facility] Rx#:[id number] Intake, IV Titration 501.017 75 Amount Norepinephrine 4 mg In 276.017 Sodium Chloride 0.9% 250 ml @ 0.05 MCG/KG/MIN 14. 516 mls/hr IV .[id number] [facility] Rx#:[id number] Sodium Chloride 0.9% 1, 225 75 000 ml @ 75 mls/hr IV . [id number] [facility] Rx#:[id number] Oral 50 Output: Urine 1155 1230 Other: Voiding Method Indwelling Catheter Indwelling Catheter - Exam GENERAL EXAM: Alert, pleasant 74-year-old gentleman, on 2 L nasal cannula, comfortable in no apparent distress. HEAD: Normocephalic. EYES: Normal reaction of pupils, equal size. NOSE: Clear with pink turbinates. THROAT: No erythema or exudates. NECK: No masses, no JVD. CHEST: No chest wall deformity. LUNGS: Equal air entry with crackles in the bilateral posterior bases. CVS: S1 and S2 normal with no audible murmur, regular rhythm. ABDOMEN: No hepatosplenomegaly, normal bowel sounds, no guarding or rigidity. SPINE: No scoliosis or deformity SKIN: No rashes CENTRAL NERVOUS SYSTEM: No focal deficits, tone is normal in all 4 extremities. EXTREMITIES: There is no peripheral edema. No clubbing, no cyanosis. Peripheral pulses are intact. - Labs CBC & Chem 7: 06/11/20 03:49 06/11/20 03:49 Labs: Abnormal Lab Results - Last 24 Hours (Table) 06/11/20 Range/Units 03:49 BUN 38 H (9-20) mg/dL Glucose 110 H (74-99) mg/dL Calcium 7.9 L (8.4-10.2) mg/dL Assessment and Plan Plan: 1 Acute non-ST segment elevation myocardial infarction in a patient found to have severe coronary artery disease including 99% left main, 80-90% proximal/mid RCA, 80% proximal circumflex, total occlusion of the LAD. The patient is supposed multivessel stenting. Hemodynamically stable. An Impella was also us ed during the procedure and was removed successfully. 2 Severe cardiomyopathy with ejection fraction less than 20% 3 hypotension, recovered 4 History of hypertension, currently hypotensive requiring norepinephrine 5 History of medication noncompliance 6 Nonsmoker Plan Continue aspirin and Brillinta Continue Coreg Drop down the IV fluids to KVO Reduce Lasix to 20 mg IV once a day. The patient does not have any active the patient is currently on 2 L of oxygen by nasal cannula Follow-up renal function Mental status is within normal limits We'll obtain a cardiac status and we'll transfer this patient out of the intensive care unit to telemetry unit on selective today.
[2020-06-11] MEDS: SODIUM CHLORIDE 0.9% 1,000 ML IV SCH (07:43)
--- NOTE | 2020-06-11 07:43 | XR ---
EXAMINATION TYPE: XR chest 1V portable DATE OF EXAM: 06/11/2020 COMPARISON: 06/08/2020 INDICATION: Pulmonary edema TECHNIQUE: Single frontal view of the chest is obtained. FINDINGS: The heart size is normal. The pulmonary vasculature is prominent. There is interval marked increased opacity through the right lung base. Milder increases at the left lung base. IMPRESSION: 1. Significant increase bilateral lung opacities greater in the right lower lobe. Correlate for pneum onia and atypical pneumonia. Pulmonary edema should be considered.
[2020-06-11] MEDS: ATORVASTATIN 80 MG TAB PO SCH (08:17)
[2020-06-11] MEDS: carvediloL 3.125 MG TAB PO SCH ×2 (08:17→18:09)
[2020-06-11] MEDS: ASPIRIN 81 MG PO SCH (08:17)
[2020-06-11] MEDS: LOSARTAN 25 MG TAB PO SCH (08:18)
[2020-06-11] MEDS: POTASSIUM CHLORIDE ER 20 MEQ TAB.ER PO SCH (08:18)
[2020-06-11] MEDS: TICAGRELOR 90 MG TAB PO SCH ×2 (08:18→20:24)
--- NOTE | 2020-06-11 08:34 | P.PN ---
Subjective Progress Note Date: 06/11/20 Principal diagnosis: chest pain Patient is a 74-year-old male for history of hypertension, he has not seen a primary care physician in approximately 40-50 years who presented to the emergency department with complaints of chest pain. In the ER he underwent an extensive evaluation. Initial EKG showed sinus tachycardia with an incomplete right bundle-branch block. Initial laboratory analysis showed a troponin of 18.2. Cardiology was notified. Stat echocardiogram was ordered which revealed ejection fraction of less than 20%. With severe left global hypokinesis. CT abdomen and pelvis demonstrated wall thickening with diverticular changes in the distal sigmoid colon inflammatory changes suggestive acute diverticulitis, mucosal lesion not excluded along with bilateral pleural effusions. CT of the chest showed no acute pulmonary embolism but moderate bilateral pleural effusions. Patient was subsequently admitted to the ICU and started on a heparin drip. He was seen by cardiology and underwent cardiac catheterization on 06/09. He was found have triple-vessel disease and no intervention was performed. CT surgery was consulted who felt he was not a surgical candidate at this point in time. He was hypotensive requiring norepinephrine. He underwent PCI with stent X 6. He id develop some confusion which improved by the morning of 06/11. Patient seen and examined at bedside. He is feeling good today. No chest pain, shortness of breath, no nausea, no vomiting. D/W nursing at bedside. Up to chair today, medrano out after epi General: Ill appearing, no distress , appears at stated age Derm: warm, dry Head: atraumatic, normocephalic, symmetric Eyes: EOMI, no lid lag, anicteric sclera Mouth: no lip lesion, mucus membranes moist Cardiovascular: S1S2 reg, no murmur, positive posterior tibial pulse bilateral, Lungs: Crackles bilateral , no accessory muscle use Abdominal: soft, nontender to palpation, no guarding, no appreciable organomegaly Ext: no gross muscle atrophy, no edema, no contractures Neuro: CN II-XI grossly intact, no focal neuro deficits Psych: Alert, oriented, appropriate affect Non-ST segment elevated myocardial infarction with three-vessel coronary artery disease -Status post percutaneous intervention with placement of 6 drug-eluting stent -Not a candidate for coronary artery bypass grafting -Cardiology and cardiothoracic surgery recommendations appreciated -Aspirin, Ticagrelor, statin, BB Ischemic cardiomyopathy with ejection fraction less than 20% and cardiogenic shock, acute congestive heart failure -off levo 06/10. -Coreg and losartan, monitor BP closely -Cardiology recommendations -Likely would benefit from life vest on discharge -Lasix decreased to daily -Strict I's and O's, daily weight Dyslipidemia -Statin therapy History of hypertension Metabolic encephalopathy, improved. Leukocytosis, resolved Medrano out, up to chair DVT prophylaxis: heparin Discussed with: patient, nursing Anticipated discharge: 3-[address]: home vs SNF A total of 45 minutes was spent on the care of this complex patient more than 50% of the time was spent in counseling and care coordination. Objective - Vital Signs Vital signs: Vital Signs Temp 97.8 F 06/11/20 08:00 Pulse 99 06/11/20 08:00 Resp 17 06/11/20 08:00 BP 95/69 06/11/20 08:00 Pulse Ox 98 06/11/20 08:00 Intake & Output 06/10/20 06/11/20 06/11/20 18:59 06:59 18:59 Intake Total 1076.017 625 20 Output Total 1155 1230 190 Balance -78.983 -605 -170 Weight 78 kg Intake: IV 525 550 10 Sodium Chloride 0.9% 1, 200 550 10 000 ml @ 50 mls/hr IV . Q20H [facility] Rx#:[id number] Intake, IV Titration 501.017 75 10 Amount Norepinephrine 4 mg In 276.017 Sodium Chloride 0.9% 250 ml @ 0.05 MCG/KG/MIN 14. 516 mls/hr IV .[id number] [facility] Rx#:[id number] Sodium Chloride 0.9% 1, 225 75 10 000 ml @ 10 mls/hr IV . Q24H [facility] Rx#:[id number] Oral 50 Output: Urine 1155 1230 190 Other: Voiding Method Indwelling Catheter Indwelling Catheter - Labs CBC & Chem 7: 06/11/20 03:49 06/11/20 03:49 Labs: Abnormal Lab Results - Last 24 Hours (Table) 06/11/20 Range/Units 03:49 BUN 38 H (9-20) mg/dL Glucose 110 H (74-99) mg/dL Calcium 7.9 L (8.4-10.2) mg/dL
[2020-06-11] MEDS: HEPARIN SOD,PORK IN 0.45% NACL 25,000 UNIT in 0.45% NACL 1 250ML.BAG IV SCH (09:40)
--- NOTE | 2020-06-11 10:43 | P.PN ---
Subjective Progress Note Date: 06/11/20 Severe coronary artery disease with severe ischemic cardiomyopathy This is a 74-year-old gentleman who has not been seen by a primary care physician or any physician in approximately 50 years. He apparently has a history of hypertension. He takes no medications for it. He presented to the emergency room early this morning after developing significant chest discomfort last evening and felt as though he might . He states he has been having chest discomfort on and off for the past 2 months. Mostly with ambulation. He also has significant abdominal discomfort after eating at times. Computed t omography scan of the abdomen revealed mild thickening and diverticular changes involving the distal sigmoid inflammatory changes suggestive of acute diverticulitis. Less likely would be colitis. Noted bilateral sizable pleural effusions and basilar consolidation for interstitial pneumonitis or tenderness venous congestion. CT angiogram revealed no acute pulmonary embolism. Moderate bilateral pleural effusions. Mild subsegmental infiltrates and ground glass opacities in the mid and upper lung guillen. EKG revealed incomplete right bundle-branch block with septal infarct age undetermined. Non-ST segment elevation myocardial with infarction and elevated troponins. Echocardiogram reveals an ejection fraction of less than 20% with apical thrombus. White count 13.1. Hemoglobin 16.0. Sodium 139. Potassium 4.0. Creatinine 1.32. Troponin 30.3, 27.3. D-dimer 2.16. AST 353. ALT 50. Santacruz virus not detected. He was subsequently taken to [facility] was found to have a 99% left main disease, 8090% proximal/mid RCA disease, 80% proximal circumflex disease, total occlusion of the LAD. He was initiated on heparin and transferred to the intensive care unit. He is seen today in consultation. He is currently resting fairly comfortably in bed. Awake and alert in no acute distress. Maintaining O2 saturations in the 90s on room air. Slightly tachycardic. He is requiring norepinephrine at 0.07 mcg/kg/m. 0.9 normal saline at 50 MLS per hour. The patient is seen today 06/10/2020 in follow-up in the intensive care unit. He is currently resting comfortably in bed. Awake and alert in no acute distress. He is maintaining O2 saturations in the 90s on 2 L/m per nasal cannula. He is still requiring norepinephrine at 0.04 mics per kilogram per minute. 0.9 normal saline at 50 MLS per hour. Remains on heparin drip. At one point last night the patient was confused and got up out of bed. He told his right groin venous sheath out. The areas remains soft. No significant hem atoma. Currently he is alert and oriented times. A safety advisor at the bedside. White count 13.0. Hemoglobin 14.4. Platelets 336. Sodium 137. Potassium 4.0. Creatinine 1.02. The plan is for in Impella placement and PCI On 06/11/2020, the patient is post multi-stent insertion and the patient has a stent in the left main, several in LAD, one in the RCA and one in the circumflex. The patient did require impella. The patient did well. The patient was brought into the intensive care unit. Currently is hemodynamically with pressors and this was gradually weaned off and currently is off the norepinephrine infusion. Is on oxygen at 2 L per minute nasal cannula. Heart rate is sinus at the rate of 92 beats per minute. He is fully oriented and awake and alert. Blood work essentially within normal limits. Creatinine 0.7 with hemoglobin 9.9. Chest x-ray from today is still pending. The patient on IV heparin. The patient is on Lasix 20 mg IV push every 12 hours. He was started also on beta blockers with Coreg 3.125 mg by mouth twice a day. He is also on a combination of aspirin and Brillinta Objective - Vital Signs Vital signs: Vital Signs Temp 97.8 F 06/11/20 08:00 Pulse 101 H 06/11/20 09:00 Resp 15 06/11/20 09:00 BP 102/73 06/11/20 09:00 Pulse Ox 100 06/11/20 09:00 Intake & Output 06/10/20 06/11/20 06/11/20 18:59 06:59 18:59 Intake Total 1076.017 625 130 Output Total 1155 1230 530 Balance -78.983 -605 -400 Weight 78 kg Intake: IV 525 550 10 Sodium Chloride 0.9% 1, 200 550 10 000 ml @ 50 mls/hr IV . Q20H [facility] Rx#:[id number] Intake, IV Titration 501.017 75 20 Amount Norepinephrine 4 mg In 276.017 Sodium Chloride 0.9% 250 ml @ 0.05 MCG/KG/MIN 14. 516 mls/hr IV .[id number] [facility] Rx#:[id number] Sodium Chloride 0.9% 1, 225 75 20 000 ml @ 10 mls/hr IV . Q24H [facility] Rx#:[id number] Oral 50 100 Output: Urine 1155 1230 530 Other: Voiding Method Indwelling Catheter Indwelling Catheter Indwelling Catheter - Exam GENERAL EXAM: Alert, pleasant 74-year-old gentleman, on 2 L nasal cannula, comfortable in no apparent distress. HEAD: Normocephalic. EYES: Normal reaction of pupils, equal size. NOSE: Clear with pink turbinates. THROAT: No erythema or exudates. NECK: No masses, no JVD. CHEST: No chest wall deformity. LUNGS: Equal air entry with crackles in the bilateral posterior bases. CVS: S1 and S2 normal with no audible murmur, regular rhythm. ABDOMEN: No hepatosplenomegaly, normal bowel sounds, no guarding or rigidity. SPINE: No scoliosis or deformity SKIN: No rashes CENTRAL NERVOUS SYSTEM: No focal deficits, tone is normal in all 4 extremities. EXTREMITIES: There is no peripheral edema. No clubbing, no cyanosis. Peripheral pulses are intact. - Labs CBC & Chem 7: 06/11/20 03:49 06/11/20 03:49 Labs: Abnormal Lab Results - Last 24 Hours (Table) 06/11/20 Range/Units 03:49 BUN 38 H (9-20) mg/dL Glucose 110 H (74-99) mg/dL Calcium 7.9 L (8.4-10.2) mg/dL Assessment and Plan Plan: 1 Acute non-ST segment elevation myocardial infarction in a patient found to have severe coronary artery disease including 99% left main, 80-90% proximal/mid RCA, 80% proximal circumflex, total occlusion of the LAD. The patient is supposed multivessel stenting. Hemodynamically stable. An Impella was also used during the procedure and was removed successfully. 2 Severe cardiomyopathy with ejection fraction less than 20% 3 hypotension, recovered 4 History of hypertension, currently hypotensive requiring norepinephrine 5 History of medication noncompliance 6 Nonsmoker Plan Continue aspirin and Brillinta Continue Coreg Drop down the IV fluids to KVO Reduce Lasix to 20 mg IV once a day. The patient does not have any active the patient is currently on 2 L of oxygen by nasal cannula Follow-up renal function Mental status is within normal limits We'll obtain a cardiac status and we'll transfer this patient out of the intensive care unit to telemetry unit on selective today.
[2020-06-11 12:16] LABS: Glucose,Whole Blood 111 mg/dL (75-99)
--- NOTE | 2020-06-11 14:20 | P.PN ---
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 Patient did undergo complex Impella protected PCI of the RCA, left main, LAD and circumflex. Patient had stenting of his left main and LAD with kissing balloon of the circumflex and treatment of his LAD PAY AGENT as well as PCI of his RCA. He did have a small hematoma on the right side which was treated with a FemoStop and improved without any further bleeding after presenting to the ICU. Patient states he has been feeling well. He was taken off of the vasopressors and was placed on a small dose of Coreg. He has been diuresis with Lasix 20 mg. REVIEW OF SYSTEMS At the time of my exam: CONSTITUTIONAL: Denies fever or chills. CARDIOVASCULAR: Denies chest pain, shortness of breath, orthopnea, PND or palpitations. RESPIRATORY: Denies cough. GASTROINTESTINAL: Denies abdominal pain, diarrhea, constipation, nausea or vomiting. MUSCULOSKELETAL: Denies myalgias. NEUROLOGIC: Denies numbness, tingling or weakness. ENDOCRINE: Denies fatigue, weight change, polydipsia or polyurina. GENITOURINARY: Denies burning, hematuria or urgency with micturation. HEMATOLOGIC: Denies history of anemia or bleeding. PHYSICAL EXAMINATION Blood pressure 102/73 heart rate 101 afebrile and maintaining oxygen saturation on room air. CONSTITUTIONAL: No apparent distress. HEENT: Head is normocephalic. Pupils are equal, round. Sclerae anicteric. Mucous membranes of the mouth are moist. No JVD. No carotid bruit. CHEST EXAMINATION: Lungs are clear to auscultation. No chest wall tenderness is noted on palpation or with deep breathing. HEART EXAMINATION: Regular rate and rhythm. S1, S2 heard. No murmurs, gallops or rub. ABDOMEN: Soft, nontender. Positive bowel sounds. EXTREMITIES: 2+ peripheral pulses, no lower extremity edema and no calf tenderness. + Mild right femoral hematoma NEUROLOGIC EXAMINATION: Patient is awake, alert and oriented x3. ASSESSMENT 1. Non-STEMI 2. Severe CAD with 99% left main, 90% RCA, 80% circumflex and PAY AGENT of the LAD, status post complete revascularization 06/10/2020 with complex Impella supported left main into LAD, PAY AGENT intervention. 3. Ischemic cardiomyopathy ejection fraction less than 20% 4. Moderate mitral regurgitation 5. Hypotension, likely related to cardiogenic shock, since improved 6. No apical thrombus on prior echo PLAN Patient status post complex revascularization. Patient did have a small right femoral hematoma however this appears to be stable. Continue to antiplatelets for 12 months. Patient appears to be somewhat improving from a hemodynamic standpoint and attempt to optimize heart failure regimen as able. There was previous mention and consult of apical thrombus however echo reviewed in no thrombus. No need for anticoagulation. Continue to monitor closely. Hopefully discharge in 24-48 hours. Objective - Vital Signs Vital signs: Vital Signs Temp 97.8 F 06/11/20 08:00 Pulse 101 H 06/11/20 09:00 Resp 15 06/11/20 09:00 BP 102/73 06/11/20 09:00 Pulse Ox 100 06/11/20 09:00 Intake & Output 06/10/20 06/11/20 06/11/20 18:59 06:59 18:59 Intake Total 1076.017 625 370 Output Total 1155 1230 530 Balance -78.983 -605 -160 Weight 78 kg Intake: IV 525 550 10 Sodium Chloride 0.9% 1, 200 550 10 000 ml @ 50 mls/hr IV . Q20H [facility] Rx#:[id number] Intake, IV Titration 501.017 75 20 Amount Norepinephrine 4 mg In 276.017 Sodium Chloride 0.9% 250 ml @ 0.05 MCG/KG/MIN 14. 516 mls/hr IV .[id number] [facility] Rx#:[id number] Sodium Chloride 0.9% 1, 225 75 20 000 ml @ 10 mls/hr IV . Q24H [facility] Rx#:[id number] Oral 50 340 Output: Urine 1155 1230 530 Other: Voiding Method Indwelling Catheter Indwelling Catheter Indwelling Catheter - Labs CBC & Chem 7: 06/11/20 03:49 06/11/20 03:49 Labs: Abnormal Lab Results - Last 24 Hours (Table) 06/11/20 06/11/20 Range/Units 03:49 12:05 BUN 38 H (9-20) mg/dL Glucose 110 H (74-99) mg/dL POC Glucose (mg/dL) 111 H (75-99) mg/dL Calcium 7.9 L (8.4-10.2) mg/dL
[2020-06-11 16:56] LABS: Glucose,Whole Blood 132 mg/dL (75-99)
[2020-06-11] MEDS: ALPRAZolam 0.25 MG TAB PO SCH (20:24)
[2020-06-11 20:29] LABS: Glucose,Whole Blood 172 mg/dL (75-99)
[2020-06-12 06:07] LABS: Glucose,Whole Blood 130 mg/dL (75-99)
[2020-06-12] MEDS: carvediloL 3.125 MG TAB PO SCH ×2 (06:37→16:42)
[2020-06-12 07:56] LABS: HCT 37.9 % (39.0-53.0); HGB 12.6 gm/dL (13.0-17.5); MCH 29.9 pg (25.0-35.0); MCHC 33.3 g/dL (31.0-37.0); MCV 89.9 fL (80.0-100.0); Platelet Count 261 k/uL (150-450); RBC 4.22 m/uL (4.30-5.90); RDW 13.5 % (11.5-15.5); WBC 10.6 k/uL (3.8-10.6)
[2020-06-12 08:06] LABS: ALT 30 U/L (4-49); AST 51 U/L (17-59); African American GFR (CKD) >90 (>60 ml/min/1.73 sqM); Alkaline Phosphatase 67 U/L (38-126); Anion Gap 6 mmol/L; Blood Urea Nitrogen 35 mg/dL (9-20); Carbon Dioxide 25 mmol/L (22-30); Chloride 104 mmol/L (98-107); Glucose 109 mg/dL (74-99); Magnesium 2.3 mg/dL (1.6-2.3); Non-African American GFR(CKD) 83 (>60 ml/min/1.73 sqM); Potassium 3.9 mmol/L (3.5-5.1); Sodium 135 mmol/L (137-145); Total Bilirubin 0.9 mg/dL (0.2-1.3); Total Protein 5.4 g/dL (6.3-8.2)
[2020-06-12] MEDS: ATORVASTATIN 80 MG TAB PO SCH (09:09)
[2020-06-12] MEDS: ASPIRIN 81 MG PO SCH (09:09)
[2020-06-12] MEDS: TICAGRELOR 90 MG TAB PO SCH ×2 (09:09→20:04)
[2020-06-12] MEDS: FUROSEMIDE 10 MG/ML 2 ML VIAL IV SCH (09:09)
[2020-06-12] MEDS: POTASSIUM CHLORIDE ER 20 MEQ TAB.ER PO SCH (09:09)
[2020-06-12] MEDS: LOSARTAN 25 MG TAB PO SCH (09:10)
[2020-06-12 11:34] LABS: Glucose,Whole Blood 163 mg/dL (75-99)
--- NOTE | 2020-06-12 12:29 | P.PN ---
Subjective Progress Note Date: 06/12/20 HISTORY OF PRESENT ILLNESS: Patient examined this morning at the bedside. He is s/p cardiac cath with PCI to RCA, LAD, and circumflex. He denies chest pain or pressure. Denies shortness of breath. PHYSICAL EXAM: VITAL SIGNS: Reviewed. GENERAL: Well-developed in no acute distress. NECK: Supple. No JVD or thyromegaly LUNGS: Respirations even and unlabored. Lungs essentially clear to auscultation bilaterally. HEART: Regular rate and rhythm. S1 and S2 heard. EXTREMITIES: Normal range of motion. No clubbing or cyanosis. Peripheral pulses intact. No lower extremity edema. Right groin soft without hematoma. ASSESSMENT: 1. Non-STEMI 2. Severe CAD with 99% left main, 90% RCA, 80% circumflex and APPLICATION SPECIALIST of the LAD, status post complete revascularization 06/10/2020 with complex Impella supported left main into LAD, APPLICATION SPECIALIST intervention. 3. Ischemic cardiomyopathy ejection fraction less than 20% 4. Moderate mitral regurgitation 5. Hypotension, likely related to cardiogenic shock, since improved 6. No apical thrombus on prior echo PLAN: Continue current cardiac medications DC IV lasix. Begin lasix PO 20mg daily and aldactone 25mg daily Notified by case management that patient does not have prescription drug coverage. Will provide patient with 1 month of Brilinta at discharge and then will transition to plavix on an outpatient basis. Patient will require a LifeVest at discharge secondary to myocardial infarction with ejection fraction less than 20% to prevent sudden cardiac . Further recommendations pending patient course Nurse practitioner note has been reviewed by physician. Signing provider agrees with the documented findings, assessment, and plan of care. Objective - Vital Signs Vital signs: Vital Signs Temp 98.7 F 06/12/20 08:00 Pulse 108 H 06/12/20 08:00 Resp 18 06/12/20 08:00 BP 101/62 06/12/20 08:00 Pulse Ox 96 06/12/20 08:00 Intake & Output 06/11/20 06/12/20 06/12/20 18:59 06:59 18:59 Intake Total 490 240 Output Total 650 Balance -160 240 Weight 76 kg Intake: IV 10 Sodium Chloride 0.9% 1, 10 000 ml @ 50 mls/hr IV . Q20H [facility] Rx#:[id number] Intake, IV Titration 20 Amount Sodium Chloride 0.9% 1, 20 000 ml @ 10 mls/hr IV . Q24H [facility] Rx#:[id number] Oral 460 240 Output: Urine 650 Other: Voiding Method Indwelling Catheter Toilet Toilet # Voids 1 # Bowel Movements 1 - Labs CBC & Chem 7: 06/12/20 07:09 06/12/20 07:09 Labs: Abnormal Lab Results - Last 24 Hours (Table) 06/11/20 06/11/20 06/12/20 Range/Units 16:41 20:27 06:05 RBC (4.30-5.90) m/uL Hgb (13.0-17.5) gm/dL Hct (39.0-53.0) % Sodium (137-145) mmol/L BUN (9-20) mg/dL Glucose (74-99) mg/dL POC Glucose (mg/dL) 132 H 172 H 130 H (75-99) mg/dL Calcium (8.4-10.2) mg/dL Total Protein (6.3-8.2) g/dL Albumin (3.5-5.0) g/dL 06/12/20 06/12/20 06/12/20 Range/Units 07:09 07:09 11:33 RBC 4.22 L (4.30-5.90) m/uL Hgb 12.6 L (13.0-17.5) gm/dL Hct 37.9 L (39.0-53.0) % Sodium 135 L (137-145) mmol/L BUN 35 H (9-20) mg/dL Glucose 109 H (74-99) mg/dL POC Glucose (mg/dL) 163 H (75-99) mg/dL Calcium 8.0 L (8.4-10.2) mg/dL Total Protein 5.4 L (6.3-8.2) g/dL Albumin 3.0 L (3.5-5.0) g/dL
--- NOTE | 2020-06-12 15:26 | P.PN ---
Subjective Progress Note Date: 06/12/20 (delayed cahrting seen at 0945) Principal diagnosis: chest pain Patient is a 74-year-old male for history of hypertension, he has not seen a primary care physician in approximately 40-50 years who presented to the emergency department with complaints of chest pain. In the ER he underwent an extensive evaluation. Initial EKG showed sinus tachycardia with an incomplete right bundle-branch block. Initial laboratory analysis showed a troponin of 18.2. Cardiology was notified. Stat echocardiogram was ordered which revealed ejection fraction of less than 20%. With severe left global hypokinesis. CT abdomen and pelvis demonstrated wall thickening with diverticular changes in the distal sigmoid colon inflammatory changes suggestive acute diverticulitis, mucosal lesion not excluded along with bilateral pleural effusions. CT of the chest showed no acute pulmonary embolism but moderate bilateral pleural effusions. Patient was subsequently admitted to the ICU and started on a heparin drip. He was seen by cardiology and underwent cardiac catheterization on 06/09. He was found have triple-vessel disease and no intervention was performed. CT surgery was consulted who felt he was not a surgical candidate at this point in time. He was hypotensive requiring norepinephrine. He underwent PCI with stent X 6. He did develop some confusion which improved by the morning of 06/11. He continued to do well. Patient seen and examined at bedside. He is doing well. No chest pain, no shortness of breath, no diarrhea. D/W nursing at bedside. Doing well, confusion improved, still with some inappropriate behaviors. General: non toxic, no distress , appears at stated age Derm: warm, dry Head: atraumatic, normocephalic, symmetric Eyes: EOMI, no lid lag, anicteric sclera Mouth: no lip lesion, mucus membranes moist Cardiovascular: S1S2 reg, no murmur, positive posterior tibial pulse bilateral, Lungs: Crackles bilateral , no accessory muscle use Abdominal: soft, nontender to palpation, no guarding, no appreciable organomegaly Ext: no gross muscle atrophy, no edema, no contractures Neuro: CN II-XI grossly intact, no focal neuro deficits Psych: Alert, oriented, appropriate affect Non-ST segment elevated myocardial infarction with three-vessel coronary artery disease -Status post percutaneous intervention with placement of 6 drug-eluting stent -Not a candidate for coronary artery bypass grafting -Cardiology and cardiothoracic surgery recommendations appreciated -Aspirin, Ticagrelor, statin, BB - Life vest prior to discharge - 30 days of Ticagrelor and then plan is for Plavix due to lack of insurance coverage. Ischemic cardiomyopathy with ejection fraction less than 20% and cardiogenic shock, acute congestive heart failure -off levo 06/10. -Coreg and losartan, monitor BP closely -Cardiology recommendations -Lasix -Strict I's and O's, daily weight Dyslipidemia -Statin therapy History of hypertension Metabolic encephalopathy, improved. Leukocytosis, resolved Reyna out, up to chair DVT prophylaxis: heparin Discussed with: patient, nursing Anticipated discharge: 2-[address]: home vs SNF A total of 35 minutes was spent on the care of this complex patient more than 50% of the time was spent in counseling and care coordination. Objective - Vital Signs Vital signs: Vital Signs Temp 97.9 F 06/12/20 12:00 Pulse 110 H 06/12/20 14:00 Resp 18 06/12/20 14:00 BP 92/63 06/12/20 12:00 Pulse Ox 97 06/12/20 12:00 Intake & Output 06/11/20 06/12/20 06/12/20 18:59 06:59 18:59 Intake Total 490 240 Output Total 650 Balance -160 240 Weight 76 kg Intake: IV 10 Sodium Chloride 0.9% 1, 10 000 ml @ 50 mls/hr IV . Q20H [facility] Rx#:[id number] Intake, IV Titration 20 Amount Sodium Chloride 0.9% 1, 20 000 ml @ 10 mls/hr IV . Q24H [facility] Rx#:[id number] Oral 460 240 Output: Urine 650 Other: Voiding Method Indwelling Catheter Toilet Toilet # Voids 1 # Bowel Movements 1 - Labs CBC & Chem 7: 06/12/20 07:09 06/12/20 07:09 Labs: Abnormal Lab Results - Last 24 Hours (Table) 06/11/20 06/11/20 06/12/20 Range/Units 16:41 20:27 06:05 RBC (4.30-5.90) m/uL Hgb (13.0-17.5) gm/dL Hct (39.0-53.0) % Sodium (137-145) mmol/L BUN (9-20) mg/dL Glucose (74-99) mg/dL POC Glucose (mg/dL) 132 H 172 H 130 H (75-99) mg/dL Calcium (8.4-10.2) mg/dL Total Protein (6.3-8.2) g/dL Albumin (3.5-5.0) g/dL 06/12/20 06/12/20 06/12/20 Range/Units 07:09 07:09 11:33 RBC 4.22 L (4.30-5.90) m/uL Hgb 12.6 L (13.0-17.5) gm/dL Hct 37.9 L (39.0-53.0) % Sodium 135 L (137-145) mmol/L BUN 35 H (9-20) mg/dL Glucose 109 H (74-99) mg/dL POC Glucose (mg/dL) 163 H (75-99) mg/dL Calcium 8.0 L (8.4-10.2) mg/dL Total Protein 5.4 L (6.3-8.2) g/dL Albumin 3.0 L (3.5-5.0) g/dL
[2020-06-12 16:01] LABS: Glucose,Whole Blood 134 mg/dL (75-99)
--- NOTE | 2020-06-12 17:34 | P.PN ---
Subjective Progress Note Date: 06/12/20 Principal diagnosis: Triple-vessel CAD This is a 74-year-old gentleman who has not been seen by a primary care physician or any physician in approximately 50 years. He apparently has a history of hypertension. He takes no medications for it. He presented to the emergency room early this morning after developing significant chest discomfort last evening and felt as though he might . He states he has been having chest discomfort on and off for the past 2 months. Mostly with ambulation. He also has significant abdominal discomfort after eating at times. Computed mariza graphy scan of the abdomen revealed mild thickening and diverticular changes involving the distal sigmoid inflammatory changes suggestive of acute diverticulitis. Less likely would be colitis. Noted bilateral sizable pleural effusions and basilar consolidation for interstitial pneumonitis or tenderness venous congestion. CT angiogram revealed no acute pulmonary embolism. Moderate bilateral pleural effusions. Mild subsegmental infiltrates and ground glass opacities in the mid and upper lung guillen. EKG revealed incomplete right bundle-branch block with septal infarct age undetermined. Non-ST segment elevation myocardial with infarction and elevated troponins. Echocardiogram reveals an ejection fraction of less than 20% with apical thrombus. White count 13.1. Hemoglobin 16.0. Sodium 139. Potassium 4.0. Creatinine 1.32. Troponin 30.3, 27.3. D-dimer 2.16. AST 353. ALT 50. Santacruz virus not detected. He was subsequently taken to [facility] was found to have a 99% left main disease, 8090% proximal/mid RCA disease, 80% proximal circumflex disease, total occlusion of the LAD. He was initiated on heparin and transferred to the intensive care unit. He is seen today in consultation. He is currently resting fairly comfortably in bed. Awake and alert in no acute distress. Maintaining O2 saturations in the 90s on room air. Slightly tachycardic. He is requiring norepinephrine at 0.07 mcg/kg/m. 0.9 normal saline at 50 MLS per hour. The patient is seen today 06/10/2020 in follow-up in the intensive care unit. He is currently resting comfortably in bed. Awake and alert in no acute distress. He is maintaining O2 saturations in the 90s on 2 L/m per nasal cannula. He is still requiring norepinephrine at 0.04 mics per kilogram per minute. 0.9 normal saline at 50 MLS per hour. Remains on heparin drip. At one point last night the patient was confused and got up out of bed. He told his right groin venous sheath out. The areas remains soft. No significant hemato ma. Currently he is alert and oriented times. A drug safety assistant at the bedside. White count 13.0. Hemoglobin 14.4. Platelets 336. Sodium 137. Potassium 4.0. Creatinine 1.02. The plan is for in Impella placement and PCI On 06/11/2020, the patient is post multi-stent insertion and the patient has a stent in the left main, several in LAD, one in the RCA and one in the circumflex. The patient did require impella. The patient did well. The patient was brought into the intensive care unit. Currently is hemodynamically with pressors and this was gradually weaned off and currently is off the norepinephrine infusion. Is on oxygen at 2 L per minute nasal cannula. Heart rate is sinus at the rate of 92 beats per minute. He is fully oriented and awake and alert. Blood work essentially within normal limits. Creatinine 0.7 with hemoglobin 9.9. Chest x-ray from today is still pending. The patient on IV heparin. The patient is on Lasix 20 mg IV push every 12 hours. He was started also on beta blockers with Coreg 3.125 mg by mouth twice a day. He is also on a combination of aspirin and Brillinta On 06/12/2020 patient seen in follow-up on selective care unit, he is resting comfortably in bed, he denies any acute distress, he is status post percutaneous intervention with placement of 6 and drug-eluting stents with Impella. Patient was deemed to be not a surgical candidate for bypass grafting. His EF is impaired, and 20-25%, his systolic blood pressure has been in the 90s to low 100s, with diastolic in the 60s, he denies any chest pain, denies any worsening shortness of breath, room air pulse ox right now is 96%. He states that with any exertion or walking he does become very short of breath, appears to be breathing comfortably at rest right now, he is on the maintenance dose of Lasix at 20 mg daily, he is on Coreg, Lipitor, aspirin and [place], in addition to Ald actone, cardiology is following. Objective - Vital Signs Vital signs: Vital Signs Temp 98.0 F 06/12/20 16:00 Pulse 108 H 06/12/20 16:00 Resp 18 06/12/20 16:00 BP 97/64 06/12/20 16:00 Pulse Ox 96 06/12/20 16:00 Intake & Output 06/11/20 06/12/20 06/12/20 18:59 06:59 18:59 Intake Total 490 240 Output Total 650 Balance -160 240 Weight 76 kg Intake: IV 10 Sodium Chloride 0.9% 1, 10 000 ml @ 50 mls/hr IV . Q20H [facility] Rx#:[id number] Intake, IV Titration 20 Amount Sodium Chloride 0.9% 1, 20 000 ml @ 10 mls/hr IV . Q24H [facility] Rx#:[id number] Oral 460 240 Output: Urine 650 Other: Voiding Method Indwelling Catheter Toilet Toilet # Voids 1 # Bowel Movements 1 - Exam GENERAL EXAM: Alert, very pleasant, 74-year-old white male, on room air, with a pulse ox of 96% comfortable in no apparent distress. HEAD: Normocephalic/atraumatic. EYES: Normal reaction of pupils, equal size. Conjunctiva pink, sclera white. NOSE: Clear with pink turbinates. THROAT: No erythema or exudates. NECK: No masses, no JVD, no thyroid enlargement, no adenopathy. CHEST: No chest wall deformity. Symmetrical expansion. LUNGS: Equal air entry with no crackles, wheeze, rhonchi or dullness. CVS: Regular rate and rhythm, normal S1 and S2, no gallops, no murmurs, no rubs ABDOMEN: Soft, nontender. No hepatosplenomegaly, normal bowel sounds, no guarding or rigidity. EXTREMITIES: No clubbing, no edema, no cyanosis, 2+ pulses and upper and lower extremities. MUSCULOSKELETAL: Muscle strength and tone normal. SPINE: No scoliosis or deformity SKIN: No rashes CENTRAL NERVOUS SYSTEM: Alert and oriented -3. No focal deficits, tone is normal in all 4 extremities. PSYCHIATRIC: Alert and oriented -3. Appropriate affect. Intact judgment and insight. - Labs CBC & Chem 7: 06/12/20 07:09 06/12/20 07:09 Labs: Abnormal Lab Results - Last 24 Hours (Table) 06/11/20 06/12/20 06/12/20 Range/Units 20:27 06:05 07:09 RBC 4.22 L (4.30-5.90) m/uL Hgb 12.6 L (13.0-17.5) gm/dL Hct 37.9 L (39.0-53.0) % Sodium (137-145) mmol/L BUN (9-20) mg/dL Glucose (74-99) mg/dL POC Glucose (mg/dL) 172 H 130 H (75-99) mg/dL Calcium (8.4-10.2) mg/dL Total Protein (6.3-8.2) g/dL Albumin (3.5-5.0) g/dL 06/12/20 06/12/20 06/12/20 Range/Units 07:09 11:33 15:56 RBC (4.30-5.90) m/uL Hgb (13.0-17.5) gm/dL Hct (39.0-53.0) % Sodium 135 L (137-145) mmol/L BUN 35 H (9-20) mg/dL Glucose 109 H (74-99) mg/dL POC Glucose (mg/dL) 163 H 134 H (75-99) mg/dL Calcium 8.0 L (8.4-10.2) mg/dL Total Protein 5.4 L (6.3-8.2) g/dL Albumin 3.0 L (3.5-5.0) g/dL Assessment and Plan Plan: Assessment: 1 Acute non-ST segment elevation myocardial infarction in a patient found to have severe coronary artery disease including 99% left main, 80-90% proximal/mid RCA, 80% proximal circumflex, total occlusion of the LAD. The patient is supposed multivessel stenting. Hemodynamically stable. An Impella was also used during the procedure and was removed successfully. 2 Severe cardiomyopathy with ejection fraction less than 20% 3 hypotension, recovered 4 History of hypertension, currently hypotensive requiring norepinephrine 5 History of medication noncompliance 6 Nonsmoker Plan: Hemodynamically patient is stable, no worsening dyspnea, continue with maintenance dose of Lasix, he is currently on room air, maintaining good O2 saturations, acute events overnight, no chest pain, patient underwent multivessel percutaneous stenting. Remains on dual antiplatelet therapy including aspirin and Brilinta. No specific pulmonary complaints, other than exertional dyspnea, no respiratory distress, pulmonary service will follow on an as-needed basis I performed a history & physical examination of the patient and discussed their management with my nurse practitioner, Eun Hastings. I reviewed the nurse practitioner's note and agree with the documented findings and plan of care. Lung sounds are positive for diminished breath sounds. The findings and the impression was discussed with the patient. I attest to the documentation by the nurse practitioner. Time with Patient: Less than 30
[2020-06-12] MEDS: ALPRAZolam 0.25 MG TAB PO SCH (20:04)
[2020-06-12 20:08] LABS: Glucose,Whole Blood 183 mg/dL (75-99)
[2020-06-13 06:07] LABS: Glucose,Whole Blood 132 mg/dL (75-99)
[2020-06-13] MEDS: carvediloL 3.125 MG TAB PO SCH ×2 (06:33→17:08)
[2020-06-13] MEDS ORDERED: FUROSEMIDE 20 MG TAB PO SCH (09:00)
[2020-06-13 09:34] LABS: HCT 37.9 % (39.0-53.0); HGB 12.8 gm/dL (13.0-17.5); MCH 30.4 pg (25.0-35.0); MCHC 33.7 g/dL (31.0-37.0); MCV 90.2 fL (80.0-100.0); Mean Platelet Volume 8.8; Platelet Count 353 k/uL (150-450); RDW 13.7 % (11.5-15.5); WBC 12.4 k/uL (3.8-10.6)
[2020-06-13] MEDS: ASPIRIN 81 MG PO SCH (09:41)
[2020-06-13] MEDS: POTASSIUM CHLORIDE ER 20 MEQ TAB.ER PO SCH (09:41)
[2020-06-13] MEDS: TICAGRELOR 90 MG TAB PO SCH ×2 (09:41→21:00)
[2020-06-13] MEDS: ATORVASTATIN 80 MG TAB PO SCH (09:41)
[2020-06-13] MEDS: SPIRONOLACTONE 25 MG TAB PO SCH (09:41)
[2020-06-13] MEDS: LOSARTAN 25 MG TAB PO SCH (09:42)
[2020-06-13 09:45] LABS: Calcium 8.6 mg/dL (8.4-10.2); Magnesium 2.5 mg/dL (1.6-2.3); Potassium 4.2 mmol/L (3.5-5.1)
[2020-06-13] MEDS ORDERED: FUROSEMIDE 10 MG/ML 2 ML VIAL IV STA (10:47)
[2020-06-13 11:31] LABS: Glucose,Whole Blood 160 mg/dL (75-99)
--- NOTE | 2020-06-13 14:50 | P.PN ---
Subjective Progress Note Date: 06/13/20 HISTORY OF PRESENT ILLNESS: Patient examined this morning at the bedside. He is s/p cardiac cath with PCI to RCA, LAD, and circumflex. He denies chest pain or pressure. He reports feeling about 12 episodes overnight and this morning where he feels like he is gasping for air. He feels like he is having a panic attack but states he has never experienced panic attacks in the past. He states when this happened at night he would sit up in bed and after about 30 seconds his symptoms would resolve. Telemetry did not reveal any arrhythmias. PHYSICAL EXAM: VITAL SIGNS: Reviewed. GENERAL: Well-developed in no acute distress. NECK: Supple. Positive JVD. No thyromegaly LUNGS: Respirations even and unlabored. Lungs diminished bilaterally. HEART: Regular rate and rhythm. S1 and S2 heard. EXTREMITIES: Normal range of motion. No clubbing or cyanosis. Peripheral pulses intact. No lower extremity edema. Right groin soft without hematoma. ASSESSMENT: 1. Non-STEMI 2. 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 3. Ischemic cardiomyopathy ejection fraction less than 20% 4. Moderate mitral regurgitation 5. Hypotension, likely related to cardiogenic shock, improving 6. Acute systolic congestive heart failure PLAN: Continue current cardiac medications Notified by case management yesterday that patient does not have prescription drug coverage. Will provide patient with 1 month of Brilinta at discharge and then will transition to plavix on an outpatient basis. Patient will require a LifeVest at discharge secondary to myocardial infarction with ejection fraction less than 20% to prevent sudden cardiac Continue current dose of Aldactone Increase Lasix to 40 mg daily starting tomorrow Patient to receive 1 time dose of Lasix 20 mg IVP Further recommendations pending patient course Nurse practitioner note has been reviewed by physician. Signing provider agrees with the documented findings, assessment, and plan of care. Objective - Vital Signs Vital signs: Vital Signs Temp 97.5 F L 06/13/20 08:00 Pulse 113 H 06/13/20 12:00 Resp 20 06/13/20 12:00 BP 98/66 06/13/20 12:00 Pulse Ox 97 06/13/20 12:00 Intake & Output 06/12/20 06/13/20 06/13/20 18:59 06:59 18:59 Intake Total 240 125 Balance 240 125 Weight 75.4 kg Intake: Oral 240 125 Other: Voiding Method Toilet Toilet # Voids 1 # Bowel Movements 1 - Labs CBC & Chem 7: 06/13/20 08:54 06/13/20 08:54 Labs: Abnormal Lab Results - Last 24 Hours (Table) 06/12/20 06/12/20 06/13/20 Range/Units 15:56 20:07 06:05 WBC (3.8-10.6) k/uL RBC (4.30-5.90) m/uL Hgb (13.0-17.5) gm/dL Hct (39.0-53.0) % BUN (9-20) mg/dL Glucose (74-99) mg/dL POC Glucose (mg/dL) 134 H 183 H 132 H (75-99) mg/dL Magnesium (1.6-2.3) mg/dL 06/13/20 06/13/20 06/13/20 Range/Units 08:54 08:54 11:30 WBC 12.4 H (3.8-10.6) k/uL RBC 4.20 L (4.30-5.90) m/uL Hgb 12.8 L (13.0-17.5) gm/dL Hct 37.9 L (39.0-53.0) % BUN 34 H (9-20) mg/dL Glucose 165 H (74-99) mg/dL POC Glucose (mg/dL) 160 H (75-99) mg/dL Magnesium 2.5 H (1.6-2.3) mg/dL
[2020-06-13 17:15] LABS: Hemoglobin A1C 5.3 % (4.0-6.0)
--- NOTE | 2020-06-13 17:20 | P.PN ---
Subjective Progress Note Date: 06/13/20 (delayed charting seen at 0905) Principal diagnosis: chest pain Patient is a 74-year-old male for history of hypertension, he has not seen a primary care physician in approximately 40-50 years who presented to the emergency department with complaints of chest pain. In the ER he underwent an extensive evaluation. Initial EKG showed sinus tachycardia with an incomplete right bundle-branch block. Initial laboratory analysis showed a troponin of 18.2. Cardiology was notified. Stat echocardiogram was ordered which revealed ejection fraction of less than 20%. With severe left global hypokinesis. CT abdomen and pelvis demonstrated wall thickening with diverticular changes in the distal sigmoid colon inflammatory changes suggestive acute diverticulitis, mucosal lesion not excluded along with bilateral pleural effusions. CT of the chest showed no acute pulmonary embolism but moderate bilateral pleural effusions. Patient was subsequently admitted to the ICU and started on a heparin drip. He was seen by cardiology and underwent cardiac catheterization on 06/09. He was found have triple-vessel disease and no intervention was performed. CT surgery was consulted who felt he was not a surgical candidate at this point in time. He was hypotensive requiring norepinephrine. He underwent PCI with stent X 6. He did develop some confusion which improved by the morning of 06/11. He continued to do well. He was having some intermittent episode of hyperventilation, no arrhythmia noted on tele. Patient seen and examined at bedside. He reports intermittent episodes of hyperventilation. During that time he feels short of breath in the is difficult slowed on his breathing. He feels slightly lightheaded. He does not have overt chest pain. He has never had these in the past prior to hospitalization. He states he had so many between 7 and 9 PM last night he decided to go to bed early to see for help. He reports having another 2 this morning. Denies any n ausea or vomiting. General: non toxic, no distress , appears at stated age Derm: warm, dry Head: atraumatic, normocephalic, symmetric Eyes: EOMI, no lid lag, anicteric sclera Mouth: no lip lesion, mucus membranes moist Cardiovascular: S1S2 reg, no murmur, positive posterior tibial pulse bilateral, Lungs: Decreased breath sounds bilateral , no accessory muscle use Abdominal: soft, nontender to palpation, no guarding, no appreciable organomegaly Ext: no gross muscle atrophy, no edema, no contractures Neuro: CN II-XI grossly intact, no focal neuro deficits Psych: Alert, oriented, appropriate affect Non-ST segment elevated myocardial infarction with three-vessel coronary artery disease -Status post percutaneous intervention with placement of 6 drug-eluting stent -Not a candidate for coronary artery bypass grafting -Cardiology and cardiothoracic surgery recommendations appreciated -Aspirin, Ticagrelor, statin, BB - Life vest prior to discharge was ordered abut patient now refusing. - 30 days of Ticagrelor and then plan is for Plavix due to lack of insurance coverage. Ischemic cardiomyopathy with ejection fraction less than 20% and cardiogenic shock, acute congestive heart failure -off levo 06/10. -Coreg and losartan, monitor BP closely -Cardiology recommendations -Lasix, extra IVP X 1 given - aldactone - cardiac rehab -Strict I's and O's, daily weight Dyslipidemia -Statin therapy History of hypertension Metabolic encephalopathy, improved. Leukocytosis, resolved Reyna out, up to chair DVT prophylaxis: heparin Discussed with: patient, nursing Anticipated discharge: in AM Anticipated discharge place: home vs SNF A total of 35 minutes was spent on the care of this complex patient more than 50% of the time was spent in counseling and care coordination. Objective - Vital Signs Vital signs: Vital Signs Temp 97.7 F 06/13/20 16:00 Pulse 116 H 06/13/20 16:00 Resp 20 06/13/20 16:00 BP 98/60 06/13/20 16:00 Pulse Ox 97 06/13/20 16:00 Intake & Output 06/12/20 06/13/20 06/13/20 18:59 06:59 18:59 Intake Total 240 125 Balance 240 125 Weight 75.4 kg Intake: Oral 240 125 Other: Voiding Method Toilet Toilet # Voids 1 2 # Bowel Movements 1 - Labs CBC & Chem 7: 06/13/20 08:54 06/13/20 08:54 Labs: Abnormal Lab Results - Last 24 Hours (Table) 06/12/20 06/13/20 06/13/20 Range/Units 20:07 06:05 08:54 WBC 12.4 H (3.8-10.6) k/uL RBC 4.20 L (4.30-5.90) m/uL Hgb 12.8 L (13.0-17.5) gm/dL Hct 37.9 L (39.0-53.0) % BUN (9-20) mg/dL Glucose (74-99) mg/dL POC Glucose (mg/dL) 183 H 132 H (75-99) mg/dL Magnesium (1.6-2.3) mg/dL 06/13/20 06/13/20 Range/Units 08:54 11:30 WBC (3.8-10.6) k/uL RBC (4.30-5.90) m/uL Hgb (13.0-17.5) gm/dL Hct (39.0-53.0) % BUN 34 H (9-20) mg/dL Glucose 165 H (74-99) mg/dL POC Glucose (mg/dL) 160 H (75-99) mg/dL Magnesium 2.5 H (1.6-2.3) mg/dL
[2020-06-13] MEDS: ALPRAZolam 0.25 MG TAB PO SCH (21:00)
[2020-06-13 21:50] VITALS: RESP 18
[2020-06-14] MEDS: carvediloL 3.125 MG TAB PO SCH (06:40)
[2020-06-14] MEDS: TICAGRELOR 90 MG TAB PO SCH (08:51)
[2020-06-14] MEDS: LOSARTAN 25 MG TAB PO SCH (08:51)
[2020-06-14] MEDS: POTASSIUM CHLORIDE ER 20 MEQ TAB.ER PO SCH (08:51)
[2020-06-14] MEDS: SPIRONOLACTONE 25 MG TAB PO SCH (08:51)
[2020-06-14] MEDS: ATORVASTATIN 80 MG TAB PO SCH (08:51)
[2020-06-14] MEDS: ASPIRIN 81 MG PO SCH (08:52)
[2020-06-14] MEDS ORDERED: FUROSEMIDE 40 MG TAB PO SCH (09:00)
[2020-06-14 11:32] VITALS: BP 105/70; PULSE 106; TEMP 98
--- NOTE | 2020-06-14 12:24 | P.DS ---
Providers Date of admission: 06/08/20 12:44 Expected date of discharge: 06/14/20 Attending physician: Leann Blancas MD Consults: 06/08/20 12:57 Consult Physician Urgent Consulting Provider: Sindy Crow Consult Reason/Comments: NSTEMI Do you want consulting provider notified?: Already Contacted 06/09/20 15:31 Consult Physician Urgent Consulting Provider: Jaime Buchaann Consult Reason/Comments: ICU Admission Do you want consulting provider notified?: Already Contacted Primary care physician: Stated None Hospital Course: Discharge Diagnosis: Non-ST segment elevated myocardial infarction with three-vessel coronary artery disease Ischemic cardiomyopathy with ejection fraction less than 20% and cardiogenic shock, acute congestive heart failure Dyslipidemia History of hypertension Metabolic encephalopathy, improved. Leukocytosis, resolved Hospital Course: Patient is a 74-year-old male for history of hypertension, he has not seen a primary care physician in approximately 40-50 years who presented to the emergency department with complaints of chest pain. In the ER he underwent an extensive evaluation. Initial EKG showed sinus tachycardia with an incomplete right bundle-branch block. Initial laboratory analysis showed a troponin of 18.2. Cardiology was notified. Stat echocardiogram was ordered which revealed ejection fraction of less than 20%. With severe left global hypokinesis. CT abdomen and pelvis demonstrated wall thickening with diverticular changes in the distal sigmoid colon inflammatory changes suggestive acute diverticulitis, mucosal lesion not excluded along with bilateral pleural effusions. CT of the chest showed no acute pulmonary embolism but moderate bilateral pleural effusions. Patient was subsequently admitted to the ICU and started on a heparin drip. He was seen by cardiology and underwent cardiac catheterization on 06/09. He was found have triple-vessel disease and no intervention was performed. CT surgery was consulted who felt he was not a surgical candidate at this point in time. He was hypotensive requiring norepinephrine. He underwent PCI with stent X 6. He did develop some confusion which improved by the morning of 06/11. He continued to do well. He was having some intermittent episode of hyperventilation, no arrhythmia noted on tele. He was given an extra dose of Lasix and that decreased the frequency of these breathing events. He was doing well and determined stable for discharge. He will establish with Dr. Cisneros for PCP and Dr. Crow for cardiology. He will have home health. He refused Life vest. Patient seen and examined at bedside. Still with some shortness of breath that lasts less than 5 minutes but less frequent and mostly with eating. No chest pain, Not light headed. Has been up and walking without difficulty. He does not want the life vest. We discussed that it would shock him out of a lethal rhythm if needed and that if he went into the this rhythm and he wasn't wearing a life vest he would . He is aware of the risk if and still does not want to wear a life vest. Vital signs reviewed and stable. General: non toxic, no distress, appears at stated age Derm: warm, dry Head: atraumatic, normocephalic, symmetric Eyes: EOMI, no lid lag, anicteric sclera Mouth: no lip lesion, mucus membranes moist Cardiovascular: S1S2 reg, no murmur, positive posterior tibial pulse bilateral, Lungs: Decreased bs bilateral, no rhonchi, no rales , no accessory muscle use Abdominal: soft, nontender to palpation, no guarding, no appreciable organomegaly Ext: no gross muscle atrophy, no edema, no contractures Neuro: CN II-XI grossly intact, no focal neuro deficits Psych: Alert, oriented, appropriate affect A total of 35 minutes of time were spent preparing this complex discharge summary . Patient Condition at Discharge: Stable Plan - Discharge Summary Discharge Rx Participant: Yes New Discharge Prescriptions: New Spironolactone [Aldactone] 25 mg PO DAILY #30 tab Aspirin 81 mg PO DAILY #30 chew Ticagrelor [Brilinta] 90 mg PO BID #60 tab carvediloL [Coreg] 3.125 mg PO BID-W/MEALS #60 tab Losartan [Cozaar] 12.5 mg PO DAILY #30 tab Potassium Chloride ER [K-Dur 20] 20 meq PO DAILY #30 tab.er.prt Furosemide [Lasix] 40 mg PO DAILY #30 tab Atorvastatin [Lipitor] 80 mg PO DAILY #30 tab Continue Omeprazole Magnesium [PriLOSEC OTC] 20 mg PO DAILY PRN PRN Reason: Gi Upset Discharge Medication List Omeprazole Magnesium [PriLOSEC OTC] 20 mg PO DAILY PRN 06/08/20 [History] Aspirin 81 mg PO DAILY #30 chew 06/14/20 [Rx] Atorvastatin [Lipitor] 80 mg PO DAILY #30 tab 06/14/20 [Rx] Furosemide [Lasix] 40 mg PO DAILY #30 tab 06/14/20 [Rx] Losartan [Cozaar] 12.5 mg PO DAILY #30 tab 06/14/20 [Rx] Potassium Chloride ER [K-Dur 20] 20 meq PO DAILY #30 tab.er.prt 06/14/20 [Rx] Spironolactone [Aldactone] 25 mg PO DAILY #30 tab 06/14/20 [Rx] Ticagrelor [Brilinta] 90 mg PO BID #60 tab 06/14/20 [Rx] carvediloL [Coreg] 3.125 mg PO BID-W/MEALS #60 tab 06/14/20 [Rx] Follow up Appointment(s)/Referral(s): Sindy Crow MD [STAFF PHYSICIAN] - 1 Week None,Stated [Primary Care Provider] - 1-2 days Carlos Cisneros [STAFF PHYSICIAN] - 1-2 Days (Could be tele or in person appt) Activity/Diet/Wound Care/Special Instructions: Activity: as tolerated Diet: Heart healthy Special Instructions: Follow closely with home care Seek medical care if recurrent chest pain, shortness of breath, lightheadedness, dizziness.
--- NOTE | 2020-06-14 16:11 | P.PN ---
Subjective Progress Note Date: 06/14/20 HISTORY OF PRESENT ILLNESS: Patient examined this morning at the bedside. He is s/p cardiac cath with PCI to RCA, LAD, and circumflex. He denies chest pain or pressure. He denies shortness of breath. Blood pressure 105/70. PHYSICAL EXAM: VITAL SIGNS: Reviewed. GENERAL: Well-developed in no acute distress. NECK: Supple. No JVD. No thyromegaly LUNGS: Respirations even and unlabored. Lungs diminished bilaterally. HEART: Regular rate and rhythm. S1 and S2 heard. EXTREMITIES: Normal range of motion. No clubbing or cyanosis. Peripheral pulses intact. No lower extremity edema. Right groin soft without hematoma. ASSESSMENT: 1. Non-STEMI 2. 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 3. Ischemic cardiomyopathy ejection fraction less than 20% 4. Moderate mitral regurgitation 5. Hypotension, likely related to cardiogenic shock, improving 6. Acute systolic congestive heart failure PLAN: Patient refusing lifevest. Dr. Moody spoke with the patient in depth at the bedside regarding the importance of the lifevest and the risks of not wearing it including sudden cardiac . Patient verbalized understanding and said "if its my time, then I , but I am not wearing that thing no matter what you say". Patient may be discharged home today from a cardiac standpoint on his current cardiac medications Patient to follow up outpatient Nurse practitioner note has been reviewed by physician. Signing provider agrees with the documented findings, assessment, and plan of care. Objective - Vital Signs Vital signs: Vital Signs Temp 98.0 F 06/14/20 11:32 Pulse 106 H 06/14/20 11:32 Resp 18 06/14/20 11:32 BP 105/70 06/14/20 11:32 Pulse Ox 97 06/14/20 11:32 Intake & Output 06/13/20 06/14/20 06/14/20 18:59 06:59 18:59 Intake Total 125 Balance 125 Weight 74.7 kg Intake: Oral 125 Other: Voiding Method Toilet Toilet # Voids 2 2 - Labs CBC & Chem 7: 06/13/20 08:54 06/13/20 08:54
== END 2020-06-14 13:25 | disposition home or self-care (01) | DRG 215 ==
LOC: EC 10:09 → 3SCARD 12:44 → 2SICU 06-09 14:37 → 3SCARD 06-11 10:10
PROVIDERS: ADMIT Internal Medicine; ATTEND Internal Medicine
PROC: 3E033XZ Introduction of Vasopressor into Peripheral Vein, Percutaneous Approach (ICD-10-PCS; 2020-06-09)
PROC: 4A023N7 Measurement of Cardiac Sampling and Pressure, Left Heart, Percutaneous Approach (ICD-10-PCS; 2020-06-09)
PROC: B2111ZZ Fluoroscopy of Multiple Coronary Arteries using Low Osmolar Contrast (ICD-10-PCS; 2020-06-09)
PROC: 027137Z Dilation of Coronary Artery, Two Arteries with Four or More Drug-eluting Intraluminal Devices, Percutaneous Approach (ICD-10-PCS; principal; 2020-06-10 11:30)
PROC: 5A0221D Assistance with Cardiac Output using Impeller Pump, Continuous (ICD-10-PCS; principal; 2020-06-10 11:30)
PROC: 02HA3RJ Insertion of Short-term External Heart Assist System into Heart, Intraoperative, Percutaneous Approach (ICD-10-PCS; principal; 2020-06-10 11:30)
DX: I21.4 Non-ST elevation (NSTEMI) myocardial infarction (principal); R57.0 Cardiogenic shock; I50.23 Acute on chronic systolic (congestive) heart failure; G93.41 Metabolic encephalopathy; I23.6 Thrombosis of atrium, auricular appendage, and ventricle as current complications following acute myocardial infarction; J84.89 Other specified interstitial pulmonary diseases; I11.0 Hypertensive heart disease with heart failure; I25.10 Atherosclerotic heart disease of native coronary artery without angina pectoris; I08.1 Rheumatic disorders of both mitral and tricuspid valves; I25.5 Ischemic cardiomyopathy; Z20.828 Contact with and (suspected) exposure to other viral communicable diseases; E78.5 Hyperlipidemia, unspecified; I45.10 Unspecified right bundle-branch block; T50.906A Underdosing of unspecified drugs, medicaments and biological substances, initial encounter; Z91.128 Patient's intentional underdosing of medication regimen for other reason; H91.90 Unspecified hearing loss, unspecified ear; Z87.39 Personal history of other diseases of the musculoskeletal system and connective tissue; Z98.890 Other specified postprocedural states; Y63.6 Underdosing and nonadministration of necessary drug, medicament or biological substance; D72.829 Elevated white blood cell count, unspecified
CPT/HCPCS: 36415; 71045; 71046; 71275; 74177; 80048; 80053; 80061; 81001; 83036; 83690; 83735; 83880; 84132; 84484; 85025; 85027; 85379; 85610; 85730; 87635; 93005; 93306; 93458; 96365; 96366; 96368; 96376; 99291

== ENCOUNTER → 2020-07-13 | Outpatient (CLI) | payer MEDICARE ==
[2020-07-13 12:27] LABS: HCT 39.8 % (39.0-53.0); HGB 13.5 gm/dL (13.0-17.5); MCH 30.3 pg (25.0-35.0); MCV 89.3 fL (80.0-100.0); Mean Platelet Volume 8.1; Platelet Count 185 k/uL (150-450); RBC 4.46 m/uL (4.30-5.90); RDW 14.1 % (11.5-15.5); WBC 6.7 k/uL (3.8-10.6)
[2020-07-13 20:55] LABS: African American GFR (CKD) 69.1 (60.0-200.0); Anion Gap 10.3 mmol/L (4.00-12.00); BUN/Creat Ratio 24.17 Ratio (12.00-20.00); Calcium 9.3 mg/dL (8.7-10.3); Carbon Dioxide 25.7 mmol/L (21.6-31.8); Non-African American GFR(CKD) 59.6 (60.0-200.0); Potassium 4.2 mmol/L (3.5-5.5)
== END | disposition home or self-care (01) ==
LOC: LABWHC1 10:56
PROVIDERS: ATTEND Internal Medicine Interventional Cardiology
DX: I25.10 Atherosclerotic heart disease of native coronary artery without angina pectoris (principal); I50.9 Heart failure, unspecified
CPT/HCPCS: 36415; 80048; 85027

== ENCOUNTER → 2022-03-15 | Outpatient (CLI) | payer SELFPAY ==
[2022-03-15 12:02] LABS: Magnesium 2.3 mg/dL (1.5-2.4)
[2022-03-15 12:03] LABS: ALT 30 U/L (10-49); AST 30 U/L (14-35); African American GFR (CKD) 75.7 (60.0-200.0); Albumin 3.8 g/dL (3.8-4.9); Alkaline Phosphatase 106 U/L (41-126); BUN/Creat Ratio 18.82 Ratio (12.00-20.00); Blood Urea Nitrogen 20.7 mg/dL (9.0-27.0); Calcium 8.7 mg/dL (8.7-10.3); Carbon Dioxide 26.9 mmol/L (20.0-27.5); Chloride 105 mmol/L (96-109); Chol/HDL Ratio 2.51 Ratio; Globulin 1.9 g/dL (1.6-3.3); Glucose 99 mg/dL (70-110); Non-African American GFR(CKD) 65.3 (60.0-200.0); Potassium 3.8 mmol/L (3.5-5.5); Sodium 140 mmol/L (135-145); Total Protein 5.7 g/dL (6.2-8.2)
== END | disposition home or self-care (01) ==
LOC: LABWHC1 07:08
PROVIDERS: ATTEND Internal Medicine Interventional Cardiology
DX: I25.10 Atherosclerotic heart disease of native coronary artery without angina pectoris (principal)
CPT/HCPCS: 36415; 80053; 80061; 83735; 84443

== ENCOUNTER → 2025-01-24 | Outpatient (CLI) | payer MEDICARE ==
[2025-01-24 15:22] LABS: HCT 42.5 % (39.6-50.0); HGB 14.2 g/dL (13.0-17.0); MCH 29.8 pg (27.0-32.0); MCHC 33.4 g/dL (32.0-37.0); MCV 89.1 FL (80.0-97.0); NRBC Per 100 WBC 0 X 10*3/uL (0.00-0.01); Platelet Count 201 X 10*3/uL (140-440); RBC 4.77 X 10*6/uL (4.40-5.60); RDW 13.8 % (11.5-14.5); WBC 5.08 X 10*3/uL (4.50-10.00)
[2025-01-24 15:55] LABS: BUN/Creat Ratio 17.50 Ratio (12.00-20.00); Blood Urea Nitrogen 17.5 mg/dL (9.0-27.0); C Reactive Protein, High Sens 1.500 mg/L (0.000-3.000); Chloride 107 mmol/L (96-109); Cholesterol 92.00 mg/dL (0.00-200.00); Glucose 93 mg/dL (70-110); HDL Cholesterol 40.10 mg/dL (40.00-60.00); LDL Cholesterol,Calculated 35.4 mg/dL (0.0-131.0); Potassium 5.1 mmol/L (3.5-5.5); Sodium 140 mmol/L (135-145); Triglycerides 82.60 mg/dL (0.00-149.00); VLDL Calculation 16.52 mg/dL (5.00-40.00)
[2025-01-24 15:56] LABS: ALT 20 U/L (10-49); AST 23 U/L (14-35); Albumin 3.8 g/dL (3.8-4.9); Albumin/Globulin Ratio 2.00 Ratio (1.60-3.17); Alkaline Phosphatase 86 U/L (41-126); Anion Gap 9.30 mmol/L (4.00-12.00); Calcium 8.7 mg/dL (8.7-10.3); Carbon Dioxide 23.7 mmol/L (21.6-31.8); Globulin 1.9 g/dL (1.6-3.3); Total Protein 5.7 g/dL (6.2-8.2)
[2025-01-24 16:46] LABS: NT-Pro-B-Type Natriuretic Pept 222 pg/mL (0-450)
== END | disposition home or self-care (01) ==
LOC: LABWHC1 09:01
PROVIDERS: ATTEND Student in an Organized Health Care Education/Training Program
DX: D72.9 Disorder of white blood cells, unspecified (principal); I50.9 Heart failure, unspecified; E11.9 Type 2 diabetes mellitus without complications; E03.9 Hypothyroidism, unspecified; E78.5 Hyperlipidemia, unspecified; R79.89 Other specified abnormal findings of blood chemistry
CPT/HCPCS: 36415; 80053; 80061; 83036; 83880; 84443; 85027; 86141